=== PATIENT | female | born 1955 | race Hispanic/Latino ===

== ENCOUNTER 2017-08-24 13:15 | Inpatient (IN) | payer BC ==
[2017-08-24] MEDS ORDERED: Albuterol-Ipratrop 3 mg / 0.5 (3 ml) UD IH STA ×2 (14:50→14:55)
[2017-08-24 15:41] LABS: BASO # 0.02 K/mm3 (0.0-2.0); BASO % 0.1 % (0.0-3.0); EOS # 0.1 (0.0-0.7); EOS % 0.4 % (1.5-5.0); GRAN # 13.44 (1.4-6.5); GRAN % 81.4 % (50.0-68.0); HEMOGLOBIN 14.6 g/dL (12.0-16.0); LYMPH # 1.8 (1.2-3.4); LYMPH % 10.8 % (22.0-35.0); MEAN CELL VOLUME 85.9 fl (80.0-105.0); MEAN CORPUSCULAR HEMOGLOBIN 29.4 pg (25.0-35.0); MEAN CORPUSCULAR HGB CONC 34.3 g/dl (31.0-37.0); MONO # 1.2 (0.1-0.6); MONO % 7.3 % (1.0-6.0); RBC 4.96 10^6/uL (3.5-6.1); RED CELL DISTRIBUTION WIDTH 12.8 % (11.5-14.5); WHITE BLOOD COUNT 16.5 10^3/ul (4.5-11.0)
--- NOTE | 2017-08-24 15:42 | RAD ---
HISTORY: r/o infiltrate COMPARISON: No prior. FINDINGS: LUNGS: There is a large right-sided pleural effusion and right-sided infiltrate with nearly complete opacification of the right lung. PLEURA: Large right pleural effusion CARDIOVASCULAR: Normal. OSSEOUS STRUCTURES: No significant abnormalities. VISUALIZED UPPER ABDOMEN: Normal. OTHER FINDINGS: None. IMPRESSION: There is a large right-sided pleural effusion and right-sided infiltrate with nearly complete opacification of the right lung.
--- NOTE | 2017-08-24 15:50 | CT ---
PROCEDURE: CT Chest without contrast HISTORY: SOB COMPARISON: None. TECHNIQUE: Contiguous axial images were obtained through the chest without intravenous contrast enhancement. Sagittal and coronal reconstructions were performed. Radiation dose (DLP): 333 mGy-cm. This CT exam was performed using one or more of the following dose reduction techniques: Automated exposure control, adjustment of the mA and/or kV according to patient size, and/or use of iterative reconstruction technique. FINDINGS: LUNGS: There is a large loculated appearing pleural effusion on the right. There is severe compression and consolidation of the right lung. There is minimal aerated lung in the right apex posteriorly. There is no obvious endobronchial lesion. There is no evidence of a pleural based mass The left lung is clear MEDIASTINUM: Unremarkable thoracic aorta. No aneurysm. Normal sized heart. Main pulmonary artery unremarkable. No vascular congestion. No lymphadenopathy. PLEURA: No pleural fluid. No pneumothorax. BONES: No fracture. No destructive lesion. UPPER ABDOMEN: Grossly unremarkable. OTHER FINDINGS: None. IMPRESSION: There is a large loculated appearing pleural effusion on the right. There is severe compression and consolidation of the right lung. There is minimal aerated lung in the right apex posteriorly. There is no obvious endobronchial lesion.
[2017-08-24 16:36] LABS: ALB/GLOB RATIO 1.1 (1.1-1.8); ALBUMIN 3.9 g/dL (3.0-4.8); ALT/SGPT 57 U/L (7-56); AST/SGOT 43 U/L (14-36); BLOOD UREA NITROGEN 14 mg/dL (7-21); CALCIUM 9.3 mg/dL (8.4-10.5); GFR AFRICAN-AMERICAN > 60; GFR NON-AFRICAN AMERICAN > 60
[2017-08-24 16:45] LABS: B-TYPE NATRIURETIC PEPTIDE 93.6 pg/mL (0-450); TROPONIN I < 0.01 ng/mL
[2017-08-24] MEDS ORDERED: Azithromycin 500MG/NS 250ml 500 MG/250 ML BAG IVPB STA (18:04)
--- NOTE | 2017-08-24 18:28 | CARD ---
APPROVED REPORT EKG Measurement Heart [id number] <Conclusion> Sinus tachycardia Nonspecific ST and T wave abnormality Abnormal ECG
--- NOTE | 2017-08-24 18:40 | ED PDOC ---
Arrival/HPI - General Chief Complaint: Respiratory Distress Time Seen by Provider: 08/24/17 14:25 Historian: Patient - History of Present Illness Narrative History of Present Illness (Text): 08/24/17 18:36 A 61 year old female presents to the emergency department complaining of progressively worsening shortness of breath for the past several weeks. Patient notes associated dry cough. She reports being treated outpatient by her PMD, with no significant improvement of symptoms. Patient denies any fever, chills, nausea, vomiting, abdominal pain, chest pain or any other complaints. Patient denies any recent travel. Time/Duration: Other (several weeks) Symptom Course: Worsening Context: Home Past Medical History - Provider Review Nursing Documentation Reviewed: Yes - Infectious Disease Hx of Infectious Diseases: None - Reproductive Menopause: Yes - Pulmonary Hx Chronic Obstructive Pulmonary Disease (COPD): Yes - Psychiatric Hx Substance Use: No - Anesthesia Hx Anesthesia: Yes Hx Anesthesia Reactions: No Hx Malignant Hyperthermia: No Family/Social History - Physician Review Nursing Documentation Reviewed: Yes Family/Social History: No Known Family HX Smoking Status: Former Smoker Hx Alcohol Use: No Hx Substance Use: No Allergies/Home Meds Allergies/Adverse Reactions: Allergies No Known Allergies Allergy (Unverified 08/24/17 14:50) Home Medications: Home Meds Medication Instructions Recorded Confirmed No Known Home Med 08/24/17 08/24/17 Review of Systems - Physician Review All systems were reviewed & negative as marked: Yes - Review of Systems Constitutional: absent: Fevers, Night Sweats Respiratory: SOB, Cough. absent: Sputum Cardiovascular: absent: Chest Pain Gastrointestinal: absent: Abdominal Pain, Nausea, Vomiting Physical Exam Vital Signs Reviewed: Yes Vital Signs Temp Pulse Resp BP Pulse Ox 08/24/17 17:35 103 H 18 125/72 94 L 08/24/17 16:25 99 H 18 104/74 95 08/24/17 15:16 102 H 18 102/79 95 08/24/17 13:43 20 95 08/24/17 13:38 97.8 F 112 H 20 100/86 94 L Temperature: Afebrile Blood Pressure: Normal Pulse: Tachycardic Respiratory Rate: Normal Appearance: Positive for: Well-Appearing, Non-Toxic, Comfortable Pain Distress: None Mental Status: Positive for: Alert and Oriented X 3 - Systems Exam Head: Present: Atraumatic, Normocephalic Pupils: Present: PERRL Extroacular Muscles: Present: EOMI Conjunctiva: Present: Normal Mouth: Present: Moist Mucous Membranes Neck: Present: Normal Range of Motion Respiratory/Chest: Present: Decreased Breath Sounds (in right lung field). No: Respiratory Distress, Accessory Muscle Use Cardiovascular: Present: Regular Rate and Rhythm, Normal S1, S2. No: Murmurs Abdomen: No: Tenderness, Distention, Peritoneal Signs Back: Present: Normal Inspection Upper Extremity: Present: Normal Inspection. No: Cyanosis, Edema Lower Extremity: Present: Normal Inspection. No: Edema Neurological: Present: GCS=15, CN II-XII Intact, Speech Normal Skin: Present: Warm, Dry, Normal Color. No: Rashes Psychiatric: Present: Alert, Oriented x 3, Normal Insight, Normal Concentration Medical Decision Making ED Course and Treatment: 08/24/17 18:36 Impression: Plan: -- Chest CT -- Chest xray -- EKG -- Labs -- Duoneb and Solumedrol -- Reassess and disposition Progress Notes: EKG shows sinus tachycardia at [address]-segment elevations. Interpreted by me. Report Date : 08/24/2017 15:40:19 Procedure: Chest xray Dictator : Johnny Gomez MD IMPRESSION: There is a large right-sided pleural effusion and right-sided infiltrate with nearly complete opacification of the right lung. Report Date : 08/24/2017 15:48:39 PROCEDURE: CT Chest without contrast Dictator : Johnny Gomez MD IMPRESSION: There is a large loculated appearing pleural effusion on the right. There is severe compression and consolidation of the right lung. There is minimal aerated lung in the right apex posteriorly. There is no obvious endobronchial lesion. Case discussed with Dr. Santacruz, who is aware of and in agreement with admission to telemetry for further evaluation. - Lab Interpretations Lab Results: 08/24/17 15:20 08/24/17 15:20 Lab Results 08/24/17 15:20: Sodium 138, Potassium 4.2, Chloride 101, Carbon Dioxide 23, Anion Gap 17, BUN 14, Creatinine 0.8, Est GFR ( Amer) > 60, Est GFR (Non- Af Amer) > 60, Random Glucose 100, Calcium 9.3, Magnesium 2.2, Total Bilirubin 0.8, AST 43 H, ALT 57 H, Alkaline Phosphatase 174 H, Lactate Dehydrogenase 545, Total Creatine Kinase 39, Troponin I < 0.01, NT-Pro-B Natriuret Pep 93.6, Total Protein 7.5, Albumin 3.9, Globulin 3.6, Albumin/Globulin Ratio 1.1 08/24/17 15:20: WBC 16.5 H D, RBC 4.96, Hgb 14.6, Hct 42.6, MCV 85.9, MCH 29.4, MCHC 34.3, RDW 12.8, Plt Count 319, MPV 10.0, Gran % 81.4 H, Lymph % (Auto) 10.8 L, [place] % (Auto) 7.3 H, Eos % (Auto) 0.4 L, Baso % (Auto) 0.1, Gran # 13.44 H, Lymph # (Auto) 1.8, [place] # (Auto) 1.2 H, Eos # (Auto) 0.1, Baso # (Auto ) 0.02 I have reviewed the lab results: Yes - RAD Interpretation Radiology Orders: 08/24/17 14:50 CHEST W/O CONTRAST [CT] Stat 08/24/17 14:51 CHEST PORTABLE [RAD] Stat - Medication Orders Current Medication Orders: Acetaminophen (Tylenol 325mg Tab) 650 mg PO Q6H PRN PRN Reason: Fever >100.4 F Enoxaparin Sodium (Lovenox) 30 mg SC DAILY SILVIA PRN Reason: Protocol Cefepime HCl (Maxipime 1gm) 1 gm in 100 mls @ 100 mls/hr IVPB Q12 [facility] PRN Reason: Protocol Last Admin: 08/24/17 21:30 Dose: 100 mls/hr eMAR Start Stop Document 08/24/17 21:30 KISHAN (Rec: 08/24/17 21:31 KISHAN [id number]) Intravenous Solution Start Date 08/24/17 Start Time 09:00 End Date 08/24/17 End time 10:00 Total Infusion Time 60 Azithromycin (Zithromax 500mg In Ns) 500 mg in 250 mls @ 167 mls/hr IVPB DAILY SIL[facility]IA PRN Reason: Protocol Vancomycin HCl (Vancomycin 1gm) 1 gm in 250 mls @ 167 mls/hr IVPB Q12H [facility] PRN Reason: Protocol Last Admin: 08/24/17 21:31 Dose: 167 mls/hr eMAR Start Stop Document 08/24/17 21:31 ZARAL (Rec: 08/24/17 21:31 ZARAL [id number]) Intravenous Solution Start Date 08/24/17 Start Time 10:30 End Date 08/24/17 End time 00:00 Total Infusion Time -630 Levalbuterol HCl (Xopenex) 1.25 mg IH [id number] SILVIA Last Admin: 08/24/17 21:14 Dose: 1.25 mg Methylprednisolone (Solu-Medrol) 40 mg IV Q8H SILVIA Last Admin: 08/24/17 18:42 Dose: 40 mg eMAR Start Stop Document 08/24/17 18:42 MV (Rec: 08/24/17 18:42 MV [id number]) Intravenous Solution Start Date 08/24/17 Start Time 18:42 Pantoprazole Sodium (Protonix Ec Tab) 40 mg PO 0630 SILVIA Venlafaxine HCl (Effexor Xr) 150 mg PO DAILY SILVIA Discontinued Medications Albuterol/Ipratropium (Duoneb 3 Mg/0.5 Mg (3 Ml) Ud) 3 ml IH STAT STA Stop: 08/24/17 14:51 Last Admin: 08/24/17 15:09 Dose: 3 ml Albuterol/Ipratropium (Duoneb 3 Mg/0.5 Mg (3 Ml) Ud) 3 ml IH STAT STA Stop: 08/24/17 14:56 Last Admin: 08/24/17 15:10 Dose: 3 ml Azithromycin (Zithromax 500mg In Ns) 500 mg in 250 mls @ 167 mls/hr IVPB STAT STA PRN Reason: Protocol Stop: 08/24/17 19:33 Last Admin: 08/24/17 18:43 Dose: 167 mls/hr eMAR Start Stop Document 08/24/17 18:43 MV (Rec: 08/24/17 18:43 MV [id number]) Intravenous Solution Start Date 08/24/17 Start Time 18:43 Methylprednisolone (Solu-Medrol) 125 mg IVP STAT STA Stop: 08/24/17 14:51 Last Admin: 08/24/17 15:10 Dose: 125 mg IVP Administration Document 08/24/17 15:10 EQ (Rec: 08/24/17 15:10 EQ [id number]) Charges for Administration # of IVP Administrations 1 Pneumococcal Polyvalent Vaccine (Pneumovax 23 Vaccine) 0.5 ml IM .ONCE ONE Stop: 08/24/17 21:40 - Scribe Statement The provider has reviewed the documentation as recorded by the Scribe Cass Marvin Provider Scribe Attestation: All medical record entries made by the Scribe were at my direction and personally dictated by me. I have reviewed the chart and agree that the record accurately reflects my personal performance of the history, physical exam, medical decision making, and the department course for this patient. I have also personally directed, reviewed, and agree with the discharge instructions and disposition. Disposition/Present on Arrival - Present on Arrival Any Indicators Present on Arrival: No History of DVT/PE: No History of Uncontrolled Diabetes: No Urinary Catheter: No History of Decub. Ulcer: No History Surgical Site Infection Following: None - Disposition Have Diagnosis and Disposition been Completed?: Yes Diagnosis: Pleural effusion Disposition: HOSPITALIZED Disposition Time: 15:10 Condition: GUARDED
[2017-08-24] MEDS: MethylPREDNISolone 40 mg Vial IV SCH (18:42)
[2017-08-24 19:36] LABS: HDL CHOLESTEROL 33 mg/dL (29-60); LDL CHOLESTEROL 115 mg/dL (0-129)
[2017-08-24] MEDS: Levalbuterol 1.25 MG/3 ML Inhal Soln UD IH SCH (21:14)
[2017-08-24] MEDS: Vancomycin 1gm in NS 250ml 1 GM/250 ML BAG IVPB SCH (21:31)
[2017-08-24 21:38] VITALS: BMI 26.5
[2017-08-24] MEDS ORDERED: Pneumococcal 23-Valent Vaccine IM ONE (21:39)
[2017-08-24] MEDS ORDERED: Cefepime 1gm in NS 100ml 1 GM/100 ML BAG IVPB SCH (22:00)
[2017-08-25] MEDS: Levalbuterol 1.25 MG/3 ML Inhal Soln UD IH SCH ×5 (01:34→20:46)
[2017-08-25] MEDS: MethylPREDNISolone 40 mg Vial IV SCH ×3 (02:13→17:29)
--- NOTE | 2017-08-25 03:30 | HP ---
HISTORY OF PRESENT ILLNESS: The patient is a 61-year-old white female, known to me from outside practice and was seen in the office on 08/10 with shortness of breath and she was densely wheezing. She was given intramuscular 80 mg Depo-Medrol. She was also given prescription of Symbicort, Medrol-Dosepak, and nebulizer treatment. CT scan of the chest was ordered, but she never got one. Patient states she started to feel a little better, but got worse again, so she came to emergency room for further evaluation. Denies any fever or chills. No history of nausea or vomiting. PAST MEDICAL HISTORY: She has significant past medical history for; 1. Depression. 2. History of hysterectomy. 3. Generalized osteoarthritis. ALLERGIES: SHE IS NOT ALLERGIC TO ANY MEDICATIONS. MEDICATIONS AT HOME: She is on Effexor 150 mg daily, vitamin D, and Celebrex 200 daily. SOCIAL HISTORY: She is and she is active smoker and smokes almost 1 pack a day. REVIEW OF SYSTEMS: Significant for shortness of breath and cough. PHYSICAL EXAMINATION: GENERAL: She is awake and alert, able to communicate. VITAL SIGNS: She is afebrile, pulse 112, respiration 20, blood pressure 100/86. LUNGS: Decreased breath sounds in the middle to lower lung region on the right side. HEART: S1 and S2 audible. ABDOMEN: Soft, nontender. No rebound, no guarding. NEUROLOGICAL: Patient is awake, alert, oriented, and communicative. LABORATORY EXAM: WBC is 16.5, hemoglobin 14, hematocrit 42, platelet of 319. Chemistry: Sodium 138, potassium 4.2, chloride 101, CO2 of 23, BUN 14, creatinine 0.8, blood sugar of 100. LFT shows AST 43, ALT 57, alkaline phosphatase is 174. She had x-ray of chest done that shows large right-sided pleural effusion and right-sided infiltrate with nearly complete opacification of the right lung and CT scan of the chest shows right pleural effusion, large loculated-appearing pleural effusion in the right side. There is severe compression and consolidation of the right lung. Minimal aerated lung in the right apex. Posteriorly, there is no obvious endobronchial lesion. ASSESSMENT: 1. Probably community-acquired pneumonia. 2. Pleural effusion. 3. Active smoker. 4. History of depression. PLAN: We will start the patient on IV antibiotics. Started on IV steroids. She was started on nebulizer treatment. I allowed her for echocardiogram. Pulmonary consult by Dr. Garcia will be requested and also consult with Dr. Nevarez. We will reevaluate the patient in a.m. Johan Santacruz MD
[2017-08-25] MEDS: Pantoprazole 40 mg EC Tab PO SCH (05:23)
[2017-08-25 06:39] LABS: GRAN # 14.93 (1.4-6.5); GRAN % 93.1 % (50.0-68.0); HEMOGLOBIN 13.5 g/dL (12.0-16.0); LYMPH # 0.8 (1.2-3.4); LYMPH % 5.2 % (22.0-35.0); MEAN CELL VOLUME 85.7 fl (80.0-105.0); MEAN CORPUSCULAR HEMOGLOBIN 28.8 pg (25.0-35.0); MEAN CORPUSCULAR HGB CONC 33.7 g/dl (31.0-37.0); MEAN PLATELET VOLUME 10.1 fl (7.0-11.0); MONO # 0.3 (0.1-0.6); MONO % 1.7 % (1.0-6.0); PLATELET COUNT 320 10^3/uL (120.0-450.0); RBC 4.68 10^6/uL (3.5-6.1); RED CELL DISTRIBUTION WIDTH 12.8 % (11.5-14.5)
[2017-08-25 06:52] LABS: ALB/GLOB RATIO 1.2 (1.1-1.8); ALBUMIN 3.8 g/dL (3.0-4.8); ALT/SGPT 58 U/L (7-56); AST/SGOT 40 U/L (14-36); BLOOD UREA NITROGEN 14 mg/dL (7-21); CALCIUM 9.1 mg/dL (8.4-10.5); GFR AFRICAN-AMERICAN > 60; GFR NON-AFRICAN AMERICAN > 60
[2017-08-25 07:06] LABS: FREE T4 1.36 ng/dL (0.78-2.19)
[2017-08-25 08:14] LABS: LYMPHOCYTE 2 % (22.0-35.0); MONOCYTE 1 % (1.0-6.0); NEUTROPHIL 97 % (50.0-70.0)
[2017-08-25 08:15] LABS: PLATELET ESTIMATE NORMAL (NORMAL)
[2017-08-25] MEDS: Vancomycin 1gm in NS 250ml 1 GM/250 ML BAG IVPB SCH ×2 (08:54→23:10)
[2017-08-25] MEDS: Venlafaxine 75 mg ER Cap PO SCH (09:14)
[2017-08-25] MEDS: Enoxaparin 30 mg Syringe SC SCH (09:14)
[2017-08-25] MEDS: Azithromycin 500MG/NS 250ml 500 MG/250 ML BAG IVPB SCH (11:02)
[2017-08-25] MEDS: Cefepime 1gm in NS 100ml 1 GM/100 ML BAG IVPB SCH ×2 (13:35→21:55)
--- NOTE | 2017-08-25 15:19 | CP.PCM.CON ---
History of Present Illness - History of Present Illness History of Present Illness: 61 year old female with PMH of COPD, depression, S/P hysterectomy, osteoarthritis was sent in to [facility] after continued and worsening shortness of breath at rest and dyspnea on exertion which started about a month ago. At that time, it was thought that she had COPD exacerbation and was given inhalers and PO antibiotics without relief of the SOB. She continued to have it and worsened over several weeks. She denies developing fevers, has no cough until today and the cough is dry without phlegm, no chest pain, no sore throat, no rhinorrhea, no headache or dizziness, no abdominal pain, no diarrhea, no dysuria. The patient traveling outside of [place] in the past 4-5 months, denies animal contacts. CXR and CT chest are showing left sided loculated pleural effusion. Infectious Diseases consult is requested to further evaluate and manage. Review of Systems - Review of Systems All systems: reviewed and no additional remarkable complaints except (as per HPI ) Past Patient History - Infectious Disease Hx of Infectious Diseases: None - Past Social History Smoking Status: Former Smoker - PULMONARY Hx Chronic Obstructive Pulmonary Disease (COPD): Yes - PSYCHIATRIC Hx Substance Use: No - ANESTHESIA Hx Anesthesia: Yes Hx Anesthesia Reactions: No Hx Malignant Hyperthermia: No Meds Allergies/Adverse Reactions: Allergies Allergy/AdvReac Type Severity Reaction Status Date / Time No Known Allergies Allergy Unverified 08/24/17 14:50 - Medications Medications: Current Medications Acetaminophen (Tylenol 325mg Tab) 650 mg PO Q6H PRN PRN Reason: Fever >100.4 F Enoxaparin Sodium (Lovenox) 30 mg SC DAILY SILVIA PRN Reason: Protocol Cefepime HCl (Maxipime 1gm) 1 gm in 100 mls @ 100 mls/hr IVPB Q12 SILVIA PRN Reason: Protocol Azithromycin (Zithromax 500mg In Ns) 500 mg in 250 mls @ 167 mls/hr IVPB DAILY SILVIA PRN Reason: Protocol Vancomycin HCl (Vancomycin 1gm) 1 gm in 250 mls @ 167 mls/hr IVPB Q12H SILVIA PRN Reason: Protocol Levalbuterol HCl (Xopenex) 1.25 mg I[id number] Last Admin: 08/24/17 21:14 Dose: 1.25 mg Methylprednisolone (Solu-Medrol) 40 mg IV Q8H [facility] Last Admin: 08/24/17 18:42 Dose: 40 mg Pantoprazole Sodium (Protonix Ec Tab) 40 mg PO 0630 SILVIA Venlafaxine HCl (Effexor Xr) 150 mg PO DAILY [facility] Physical Exam - Constitutional Appears: Chronically Ill, Other (short of breath, speaks in sentences) - Head Exam Head Exam: NORMAL INSPECTION - Respiratory Exam Respiratory Exam: Decreased Breath Sounds - Cardiovascular Exam Cardiovascular Exam: +S1, +S2 - GI/Abdominal Exam GI & Abdominal Exam: Soft. absent: Tenderness Results - Vital Signs Recent Vital Signs: Last Vital Signs Temp 97.8 F 08/24/17 13:38 Pulse 103 H 08/24/17 17:35 Resp 18 08/24/17 17:35 BP 125/72 08/24/17 17:35 Pulse Ox 94 L 08/24/17 17:35 - Labs Result Diagrams: 08/25/17 06:15 08/25/17 06:15 Labs: Laboratory Results - last 24 hr 08/24/17 19:04 Triglycerides 190 H Cholesterol 189 LDL Cholesterol Direct 115 HDL Cholesterol 33 Assessment & Plan - Assessment and Plan (Free Text) Plan: Assessment Systemic Inflammatory response syndrome due to respiratory distress from loculated pleural effusion, R/O empyema associated with left HCAP, R/o malignant pleural effusion COPD depression S/P hysterectomy osteoarthritis Plan Started the patient on Vancomycin and Cefepime pending blood cx; patient will need thoracentesis and will await pleural fluid analysis for cytology, bacterial , fungal and mycobacterial cultures ; [place] making TB unlikely will monitor clinically
[2017-08-25] MEDS: Oxycodone/Acetaminophen 5/325 mg Tab PO PRN (15:44)
--- NOTE | 2017-08-25 16:26 | US ---
PROCEDURE: Ultrasound guided right thoracentesis. CLINICAL HISTORY: Large right pleural effusion. Shortness of breath. Smoker. Evaluate for malignant effusion. PHYSICIAN(S): Pool Antunez MD. TECHNIQUE: The relative risks and indications of the procedure were explained the patient and consent obtained. The patient is placed in a sitting position is sonography of the right chest performed. This revealed a large non loculated right pleural effusion. A puncture site in the right posterior lateral chest was selected in the area prepped and draped usual sterile fashion. 1 percent xylocaine was used to anesthetize the skin soft tissues. 7 Turkmen catheter was trocar into the right pleural space and 3000 cc of poe fluid aspirated. Specimens were sent for cytology and pH. IMPRESSION: 1. Ultrasound guided right thoracentesis. 3000 cc of poe fluid were aspirated. A cytology specimen was sent
--- NOTE | 2017-08-25 18:07 | PN ---
DATE: 08/25/2017 SUBJECTIVE: The patient is 61 years old, seen and examined, complained of shortness of breath, very little difference. The patient is scheduled for thoracentesis. PHYSICAL EXAMINATION: GENERAL: She is awake, alert, oriented, communicative, short of breath. VITAL SIGNS: She is afebrile, pulse 66, respirations 20, blood pressure 116/75. LUNGS: She has decreased breath sounds allover from top to the base on the right side; however, she has fair airflow on the left side. HEART: S1 and S2 audible. ABDOMEN: Soft. Nontender. No rebound. No guarding. NEUROLOGIC: She is awake, alert, oriented, communicative. LABORATORY EXAM: WBC 16, hemoglobin 13.5, hematocrit 40, platelet Of 320. Chemistry: Sodium 141, potassium 4.2, chloride 104, CO2 of 24, BUN 14, creatinine 0.7, blood sugar of 130. Her AST 40, ALT 58. Procalcitonin is 0.05. After I saw the patient, the patient has ultrasound-guided right thoracentesis done and 3000 mL of the fluid was aspirated. Echocardiogram is pending. ASSESSMENT: 1. Right pleural effusion, probably resolving pneumonia. 2. History of depression. 3. Chronic obstructive pulmonary disease. 4. History of hysterectomy. PLAN: We will continue the patient on nebulizer treatment. She is on DVT prophylaxis. She is getting Maxipime. We will give her Percocet as needed. Currently, she is on vancomycin, Maxipime and Zithromax. We will continue that. We will reevaluate the patient in the a.m. Follow up thoracentesis. We will follow up pleural fluid cytology and we will continue to monitor the patient closely. Johan Santacruz MD
--- NOTE | 2017-08-25 19:00 | CARD ---
APPROVED REPORT EXAM: Two-dimensional and M-mode echocardiogram with Doppler and color Doppler. INDICATION Dyspnea 2D DIMENSIONS Left Atrium (2D)2.9 (1.6-4.0cm)IVSd1.1 (0.7-1.1cm) LVDd3.8 (3.9-5.9cm)PWd1.0 (0.7-1.1cm) LVDs2.4 (2.5-4.0cm)FS (%) 35.5 % LVEF (%)65.7 (>50%) M-Mode DIMENSIONS Aortic Root3.30 (2.2-3.7cm)Aortic Cusp Exc.1.70 (1.5-2.0cm) Aortic Valve AoV Peak [id number]/Joaquin Peak GR.10mmHg Mitral Valve E/A ratio0.0 TDI E/Lateral E'0.0E/Medial E'0.0 Tricuspid Valve TR Peak [id number] [id number] Peak Gr.28mmHg [id number] LEFT VENTRICLE The left ventricle is normal size. There is normal left ventricular wall thickness. The left ventricular function is normal. The left ventricular ejection fraction is within the normal range. There is normal LV segmental wall motion. Transmitral Doppler flow pattern is Grade I-abnormal relaxation pattern. RIGHT VENTRICLE The right ventricle is normal size. There is normal right ventricular wall thickness. The right ventricular systolic function is normal. ATRIA The left atrium size is normal. The right atrium size is normal. AORTIC VALVE The aortic valve is normal in structure. No aortic regurgitation is present. There is no aortic valvular stenosis. MITRAL VALVE The mitral valve is moderately thickened. There is no mitral valve regurgitation noted. There is no mitral valve stenosis. TRICUSPID VALVE There is mild tricuspid regurgitation. There is mild pulmonary hypertension. GREAT VESSELS The aortic root is normal in size. PERICARDIAL EFFUSION There is large right pleural effusion. There is a trace loculated anterior pericardial effusion. <Conclusion> The left ventricle is normal size. There is normal left ventricular wall thickness. The left ventricular function is normal. The left ventricular ejection fraction is within the normal range. There is normal LV segmental wall motion. Transmitral Doppler flow pattern is Grade I-abnormal relaxation pattern. There is mild tricuspid regurgitation. There is mild pulmonary hypertension. There is large right pleural effusion.
[2017-08-26] MEDS: Levalbuterol 1.25 MG/3 ML Inhal Soln UD IH SCH ×4 (01:09→19:45)
[2017-08-26] MEDS: MethylPREDNISolone 40 mg Vial IV SCH ×2 (01:09→11:07)
[2017-08-26] MEDS: Oxycodone/Acetaminophen 5/325 mg Tab PO PRN ×3 (01:18→22:32)
--- NOTE | 2017-08-26 02:16 | CON ---
DATE: 08/25/2017 PULMONARY CONSULTATION REFERRING PHYSICIAN: Johan Santacruz MD. REASON FOR CONSULTATION: Cough, shortness of breath, chronic lung disease, large pleural effusion. HISTORY OF PRESENT ILLNESS: This is a 61-year-old female with past medical history significant for depression, osteoarthritis, may have chronic lung disease, seen primary care physician as an outpatient with shortness of breath. She was giving p.o. and inhaled bronchodilator without much success. Her respiratory status got worse and came to emergency room, found to have a large pleural effusion. She was started on IV and inhaled bronchodilator, antibiotic was given. Still has shortness of breath. No fever. No hemoptysis, hematemesis, hematuria, diarrhea reported. PAST MEDICAL HISTORY: As per history of present illness. ALLERGIES: NONE KNOWN. SOCIAL HISTORY: Positive history of smoking. Denies any alcohol use. Recently had divorce. MEDICATIONS: She is on Effexor XR 150 mg daily, Lovenox 30 mg subcu daily, cefepime 1 g IV every 8 hours, Protonix 40 mg daily, Solu-Medrol 40 mg every 8 hours, Tylenol p.r.n. basis, vancomycin 1 g IV every 12 hours, Xanax 0.5 mg three times a day p.r.n., Xopenex inhale every 6 hours, and Zithromax 500 mg daily. REVIEW OF SYSTEMS: No headache, no rhinitis. Does not know if snore. Short of breath, cough. No nausea, no vomiting, no diarrhea, no dysuria. No leg pain or leg swelling. PHYSICAL EXAMINATION: GENERAL: Mild distress secondary to shortness of breath. VITAL SIGNS: Temperature is 98, heart rate is 66, respiratory rate is 20, blood pressure 116/75, pulse ox 96% on 2 liters nasal cannula. HEENT: Moist mucous membrane. Crowded airway. NECK: Supple. No JVD. LUNGS: breath sounds in the right lung. Poor airflow in the left lung. HEART: S1 and S2. ABDOMEN: Soft, nontender. No organomegaly. EXTREMITIES: No edema. NEUROLOGIC: Awake, alert, and follows simple commands. LABORATORY DATA: Shows hemoglobin 13.5, hematocrit 40.1, WBC 16, platelet count is 320. Sodium 141, potassium 4.2, chloride 104, bicarbonate 24, BUN 14, creatinine 0.7, glucose 130, calcium is 9.1. AST 40, ALT 58, alkaline phosphatase is 154. Albumin is 3.8, procalcitonin less than 0.05. Free T4 is 1.37, TSH 0.7. CT of the chest done in ER yesterday shows large loculated appearing right pleural effusion with severe compression and atelectasis of the right lung. IMPRESSION AND PLAN: Large right pleural effusion which is loculated, component of chronic obstructive lung disease, degenerative joint disease, clinically suspicious for malignancy. Spoke to nursing staff. Awaiting for large volume thoracentesis in interventional radiology. Continue IV and inhaled bronchodilator. Continue antibiotics. Gastric prophylaxis, deep venous thrombosis prophylaxis, Nicoderm patch. Thank you and we will follow with you. Ben Garcia MD
[2017-08-26] MEDS: Pantoprazole 40 mg EC Tab PO SCH (05:44)
[2017-08-26] MEDS: Cefepime 1gm in NS 100ml 1 GM/100 ML BAG IVPB SCH ×3 (05:45→21:49)
[2017-08-26 06:26] LABS: BASO # 0.01 K/mm3 (0.0-2.0); GRAN # 26.27 (1.4-6.5); GRAN % 94.1 % (50.0-68.0); HEMOGLOBIN 13.1 g/dL (12.0-16.0); LYMPH % 3.6 % (22.0-35.0); MEAN CORPUSCULAR HEMOGLOBIN 28.7 pg (25.0-35.0); MEAN CORPUSCULAR HGB CONC 33.3 g/dl (31.0-37.0); MEAN PLATELET VOLUME 10.2 fl (7.0-11.0); MONO # 0.6 (0.1-0.6); MONO % 2.3 % (1.0-6.0); RBC 4.57 10^6/uL (3.5-6.1); RED CELL DISTRIBUTION WIDTH 12.7 % (11.5-14.5)
[2017-08-26 06:44] LABS: WHITE BLOOD COUNT 27.9 10^3/ul (4.5-11.0)
[2017-08-26 07:30] LABS: ALB/GLOB RATIO 1.2 (1.1-1.8); ALBUMIN 3.8 g/dL (3.0-4.8); ALT/SGPT 92 U/L (7-56); AST/SGOT 75 U/L (14-36); BLOOD UREA NITROGEN 14 mg/dL (7-21); CALCIUM 9.1 mg/dL (8.4-10.5); GFR AFRICAN-AMERICAN > 60; GFR NON-AFRICAN AMERICAN > 60
--- NOTE | 2017-08-26 08:38 | RAD ---
HISTORY: rt thora. ? rt hilar mass COMPARISON: 08/24/2017 TECHNIQUE: Chest PA and lateral FINDINGS: LUNGS: There is a large right-sided pneumothorax following thoracentesis. At the right lung base the edge of the lung is 5 cm from the chest wall. I spoke to the patient's nurse at 8:30 a.m. 08/26/2017 PLEURA: No significant pleural effusion identified. No pneumothorax apparent. CARDIOVASCULAR: Normal. OSSEOUS STRUCTURES: No significant abnormalities. VISUALIZED UPPER ABDOMEN: Normal. OTHER FINDINGS: None. IMPRESSION: Large right-sided pneumothorax
[2017-08-26] MEDS: Vancomycin 1gm in NS 250ml 1 GM/250 ML BAG IVPB SCH (08:40)
--- NOTE | 2017-08-26 08:42 | CT ---
PROCEDURE: CT Chest without contrast HISTORY: r/o tumor COMPARISON: 08/24/2017 TECHNIQUE: Contiguous axial images were obtained through the chest without intravenous contrast enhancement. Sagittal and coronal reconstructions were performed. Radiation dose (DLP): 243 mGy-cm. This CT exam was performed using one or more of the following dose reduction techniques: Automated exposure control, adjustment of the mA and/or kV according to patient size, and/or use of iterative reconstruction technique. FINDINGS: LUNGS: There is a large pneumothorax following thoracentesis. There is a small residual hydro pneumothorax. There is some consolidation in the periphery of the right lower lobe without evidence of a discrete mass. This would be better re- evaluated when there is re-expansion of the right lung. There is no obvious endobronchial lesion. I spoke to the patient's nurse regarding this finding at 8:30 a.m. on 08/26/2017. There is some parenchymal scarring in the left lung as well as emphysematous changes in both upper lobes. MEDIASTINUM: Unremarkable thoracic aorta. No aneurysm. Normal sized heart. Main pulmonary artery unremarkable. No vascular congestion. No lymphadenopathy. PLEURA: No pleural fluid. No pneumothorax. BONES: No fracture. No destructive lesion. UPPER ABDOMEN: Grossly unremarkable. OTHER FINDINGS: None. IMPRESSION: Large right-sided pneumothorax following thoracentesis. There is some consolidation in the periphery of the right lower lobe without evidence of a discrete mass. Revaluation after re-expansion of the lung is recommended
[2017-08-26] MEDS: Enoxaparin 30 mg Syringe SC SCH (09:21)
[2017-08-26] MEDS ORDERED: Morphine 4 mg/ml ISec IVP STA (09:43)
[2017-08-26] MEDS ORDERED: Lidocaine 2% Inj (20ml) IV STA (09:56)
[2017-08-26 10:06] LABS: INR 1.16 (0.93-1.08); PARTIAL THROMBOPLASTIN TIME 25.9 Seconds (25.1-36.5); PROTHROMBIN TIME 13.4 SECONDS (9.4-12.5)
--- NOTE | 2017-08-26 10:49 | CP.PCM.CON ---
<Glynn Aguilar - Last Filed: 08/26/17 16:21> History of Present Illness - History of Present Illness History of Present Illness: Surgery Consult note. Dr. Patino 61yo F with PMHx of Depression, OA, COPD here for evaluation of shortness of breath. Patient reports slowly worsening dyspnea over the past 5 weeks. She saw her PMD and was prescribed two courses of steroids without any improvement. Upon presentation to the ED, she was noted to have a large right sided pleural effusion. Interventional Radiology performed an ultrasound guided thoracenthesis with 3L of poe colored fluid removed on 08/25. She states that her SOB has improved significantly since the procedure. Surgery was consulted due to Right sided pneumothorax apparent on CXR this morning. Currently, patient reports some dyspnea, slightly worse compared to yesterday. She denies any fevers, no chills. No Cough. No Chest pain. No N/V/D. No Abd pain. Denies sick contacts. PMHx: Depression, OA, COPD PSHx: x2, Partial Hysterectomy, Cholecystectomy, Right Breast Lumpectomy x2 (benign). Social Hx: Significant Tobacco use (43 years of tobacco use). NKDA Review of Systems - Review of Systems All systems: reviewed and no additional remarkable complaints except - Constitutional Constitutional: absent: Chills, Fever - Cardiovascular Cardiovascular: Dyspnea, Dyspnea on Exertion. absent: Chest Pain - Respiratory Respiratory: Dyspnea. absent: Cough - Gastrointestinal Gastrointestinal: absent: Abdominal Pain, Diarrhea, Nausea, Vomiting - Genitourinary Genitourinary: absent: Dysuria - Neurological Neurological: absent: Headaches - Psychiatric Psychiatric: absent: Anxiety, Depression Past Patient History - Infectious Disease Hx of Infectious Diseases: None - Past Medical History & Family History Past Family History: Reviewed and not pertinent - Past Social History Smoking Status: Former Smoker - PULMONARY Hx Chronic Obstructive Pulmonary Disease (COPD): Yes - MUSCULOSKELETAL/RHEUMATOLOGICAL Hx Falls: No - GASTROINTESTINAL Hx Gastroesophageal Reflux: Yes - GENITOURINARY/GYNECOLOGICAL Other/Comment: B/L LUNPECTOMY, C-SECTIONX2, GENI - PSYCHIATRIC Hx Substance Use: No - SURGICAL HISTORY Hx Surgeries: Yes Hx Cholecystectomy: Yes Hx Mastectomy: Yes (LUMPECTOMY B/L) - ANESTHESIA Hx Anesthesia: Yes Hx Anesthesia Reactions: No Hx Malignant Hyperthermia: No Meds Allergies/Adverse Reactions: Allergies Allergy/AdvReac Type Severity Reaction Status Date / Time No Known Allergies Allergy Unverified 08/24/17 14:50 - Medications Medications: Current Medications Acetaminophen (Tylenol 325mg Tab) 650 mg PO Q6H PRN PRN Reason: Fever >100.4 F Alprazolam (Xanax) 0.5 mg PO TID PRN; Protocol PRN Reason: Anxiety Last Admin: 08/26/17 09:36 Dose: 0.5 mg Enoxaparin Sodium (Lovenox) 30 mg SC DAILY [facility] PRN Reason: Protocol Last Admin: 08/26/17 09:21 Dose: Not Given Azithromycin (Zithromax 500mg In Ns) 500 mg in 250 mls @ 167 mls/hr IVPB DAILY [facility] PRN Reason: Protocol Last Admin: 08/25/17 11:02 Dose: 167 mls/hr Vancomycin HCl (Vancomycin 1gm) 1 gm in 250 mls @ 167 mls/hr IVPB Q12H [facility] PRN Reason: Protocol Last Admin: 08/26/17 08:40 Dose: 167 mls/hr Cefepime HCl (Maxipime 1gm) 1 gm in 100 mls @ 100 mls/hr IVPB Q8 [facility] PRN Reason: Protocol Last Admin: 08/26/17 05:45 Dose: 100 mls/hr Levalbuterol HCl (Xopenex) 1.25 mg IH [id number] [facility] Last Admin: 08/26/17 08:15 Dose: 1.25 mg Methylprednisolone (Solu-Medrol) 40 mg IV Q8H [facility] Last Admin: 08/26/17 01:09 Dose: 40 mg Oxycodone/Acetaminophen (Percocet 5/325 Mg Tab) 1 tab PO Q6H PRN PRN Reason: Pain, moderate (4-7) Stop: 08/28/17 15:28 Last Admin: 08/26/17 01:18 Dose: 1 tab Pantoprazole Sodium (Protonix Ec Tab) 40 mg PO 0630 [facility] Last Admin: 08/26/17 05:44 Dose: 40 mg Venlafaxine HCl (Effexor Xr) 150 mg PO DAILY [facility] Last Admin: 08/25/17 09:14 Dose: 150 mg Physical Exam - Constitutional Additional comments: visbly short of breath with some increased work of breathing - Head Exam Head Exam: ATRAUMATIC, NORMAL INSPECTION, NORMOCEPHALIC - Eye Exam Eye Exam: EOMI, Normal appearance - ENT Exam ENT Exam: Mucous Membranes Moist - Respiratory Exam Respiratory Exam: Decreased Breath Sounds (decreased breath sounds on right. ). absent: Accessory Muscle Use Additional comments: some increased work of breathing noted - Cardiovascular Exam Cardiovascular Exam: absent: JVD - GI/Abdominal Exam GI & Abdominal Exam: Soft. absent: Distended, Firm, Guarding, Tenderness - Extremities Exam Extremities exam: Positive for: normal inspection. Negative for: calf tenderness - Back Exam Additional comments: mid posterior back thoracenthesis dressing noted, to be clean dry and intact. - Neurological Exam Neurological exam: Alert, Oriented x3 - Skin Skin Exam: Dry, Intact, Normal Color, Warm Results - Vital Signs Recent Vital Signs: Last Vital Signs Temp 97.8 F 08/26/17 08:44 Pulse 80 08/26/17 10:34 Resp 20 08/26/17 08:44 BP 132/90 08/26/17 10:34 Pulse Ox 95 08/26/17 10:34 - Labs Result Diagrams: 08/26/17 05:30 08/26/17 05:30 Labs: Laboratory Results - last 24 hr 08/25/17 08/25/17 08/26/17 06:00 15:00 05:30 WBC 27.9 H* D RBC 4.57 Hgb 13.1 Hct 39.3 MCV 86.0 MCH 28.7 MCHC 33.3 RDW 12.7 Plt Count 356 MPV 10.2 Gran % 94.1 H Lymph % (Auto) 3.6 L [place] % (Auto) 2.3 Eos % (Auto) 0.0 L Baso % (Auto) 0.0 Gran # 26.27 H Lymph # (Auto) 1.0 L [place] # (Auto) 0.6 Eos # (Auto) 0.0 Baso # (Auto) 0.01 PT INR APTT Sodium Potassium Chloride Carbon Dioxide Anion Gap BUN Creatinine Est GFR ( Amer) Est GFR (Non-Af Amer) Random Glucose Calcium Total Bilirubin AST ALT Alkaline Phosphatase Total Protein Albumin Globulin Albumin/Globulin Ratio Procalcitonin < 0.05 L Pleural pH 7.5 08/26/17 08/26/17 05:30 09:48 WBC RBC Hgb Hct MCV MCH MCHC RDW Plt Count MPV Gran % Lymph % (Auto) [place] % (Auto) Eos % (Auto) Baso % (Auto) Gran # Lymph # (Auto) [place] # (Auto) Eos # (Auto) Baso # (Auto) PT 13.4 H INR 1.16 H APTT 25.9 Sodium 140 Potassium 4.1 Chloride 104 Carbon Dioxide 27 Anion Gap 14 BUN 14 Creatinine 0.7 Est GFR ( Amer) > 60 Est GFR (Non-Af Amer) > 60 Random Glucose 139 H Calcium 9.1 Total Bilirubin 0.5 AST 75 H D ALT 92 H Alkaline Phosphatase 150 H Total Protein 7.1 Albumin 3.8 Globulin 3.3 Albumin/Globulin Ratio 1.2 Procalcitonin Pleural pH Assessment & Plan - Assessment and Plan (Free Text) Assessment: 61yo F with right-sided pneumothorax s/p thoracenthesis on 08/25/17. Plan: - 14F Chest Tube placed - Consent obtained and on chart - Continue pleurvac to wall suction - Daily CXR - Continue Abx - Consider repeat Chest CT to evaluate for underlying cause Further recs as per Dr. Sukumar Aguilar PGY1 surgery pager: [phone] <Jim Patino - Last Filed: 08/30/17 12:38> Meds - Medications Medications: Current Medications Acetaminophen (Tylenol 325mg Tab) 650 mg PO Q6H PRN PRN Reason: Fever >100.4 F Alprazolam (Xanax) 0.5 mg PO BID PRN; Protocol PRN Reason: Anxiety Last Admin: 08/30/17 10:04 Dose: 0.5 mg Docusate Sodium (Colace) 200 mg PO DAILY [facility] Last Admin: 08/30/17 09:11 Dose: 200 mg Doxycycline Hyclate (Doryx) 100 mg PO Q12 [facility] PRN Reason: Protocol Stop: 09/02/17 22:01 Last Admin: 08/30/17 09:11 Dose: 100 mg Enoxaparin Sodium (Lovenox) 30 mg SC DAILY [facility] PRN Reason: Protocol Last Admin: 08/30/17 09:11 Dose: 30 mg Levalbuterol HCl (Xopenex) 1.25 mg IH [id number] [facility] Last Admin: 08/30/17 07:34 Dose: 1.25 mg Lidocaine (Lidoderm) 1 ea TD DAILY [facility] Last Admin: 08/30/17 09:11 Dose: 1 ea Oxycodone/Acetaminophen (Percocet 5/325 Mg Tab) 1 tab PO Q6H PRN PRN Reason: Pain, moderate (4-7) Stop: 08/31/17 22:12 Last Admin: 08/29/17 23:37 Dose: 1 tab Pantoprazole Sodium (Protonix Ec Tab) 40 mg PO 0630 [facility] Last Admin: 08/30/17 05:42 Dose: 40 mg Venlafaxine HCl (Effexor Xr) 150 mg PO DAILY [facility] Last Admin: 08/30/17 09:11 Dose: 150 mg Results - Vital Signs Recent Vital Signs: Last Vital Signs Temp 99.1 F 08/30/17 08:11 Pulse 109 H 08/30/17 10:00 Resp 19 08/30/17 08:11 BP 122/67 08/30/17 08:11 Pulse Ox 95 08/30/17 08:11 - Labs Result Diagrams: 08/30/17 07:00 08/30/17 07:00 Labs: Laboratory Results - last 24 hr 08/30/17 08/30/17 07:00 07:00 WBC 15.2 H RBC 4.50 Hgb 12.8 Hct 39.2 MCV 87.1 MCH 28.4 MCHC 32.7 RDW 12.9 Plt Count 359 MPV 10.1 Gran % 78.2 H Lymph % (Auto) 13.4 L [place] % (Auto) 6.7 H Eos % (Auto) 1.5 Baso % (Auto) 0.2 Gran # 11.85 H Lymph # (Auto) 2.0 [place] # (Auto) 1.0 H Eos # (Auto) 0.2 Baso # (Auto) 0.03 Sodium 140 Potassium 3.8 Chloride 101 Carbon Dioxide 30 Anion Gap 13 BUN 13 Creatinine 0.7 Est GFR ( Amer) > 60 Est GFR (Non-Af Amer) > 60 Random Glucose 96 Calcium 8.7 Assessment & Plan - Assessment and Plan (Free Text) Assessment: This consult done under my direct supervision Natalie Patino MD FACS
--- NOTE | 2017-08-26 10:55 | PCM.PROC ---
Procedures Attestation:: I certify that I have explained the specified Operation(s) or Procedure(s), risks, benefits and reasonable alternatives to the Patient and/or other person responsible. The opportunity was given to ask questions and all questions answered - Chest Tube Chest Tube Location: Lateral Chest Right Size of Tube (cm): 14 (14F tube) Chest Tube Procedure: Chlorhexidine Tube Sutured to Skin: Yes Sterile Dressing Applied: Yes Anesthesia: Lidocaine 1% Volume Anesthetic (mls): 10 Incision Made With: #11 blade Post Procedure: sutured to skin, sterile dressing applied, air occlusive dressing Kurtz of Air [place]: Yes Tube Drainage: fluid (Serosanguinous) Amount of Initial Drainage: 50 Post Procedure CXR?: Yes Patient Tolerated Procedure: Yes Progress: Written consent obtained and on chart. Patient prepped and draped in the usual sterile fashion. Lidocaine 1% 10cc used for local anesthesia. Right lateral chest wall, second intercostal space, 18G needle inserted and air pocket encountered. 14F tube placed using the seldinger technique. Chest tube attached to wall suction, air leak noted as the lung re- expanded. Chest tube secured to skin with 2-0 nylon sutures. Patient tolerated procedure well. Post-procedure chest x-ray with lung re-expansion noted. Dr. Patino present at bedside during entire procedure. Glynn Aguilar PGY1
--- NOTE | 2017-08-26 11:01 | RAD ---
HISTORY: s/p chest tube placement COMPARISON: 08/26/2017 FINDINGS: LUNGS: There is a right-sided chest tube with re-expansion of the lung. There is a minimal residual pneumothorax. There is persistent consolidation in the periphery of the right lung PLEURA: No significant pleural effusion identified, no pneumothorax apparent. CARDIOVASCULAR: Normal. OSSEOUS STRUCTURES: No significant abnormalities. VISUALIZED UPPER ABDOMEN: Normal. OTHER FINDINGS: None. IMPRESSION: Successful re-expansion of right lung following chest tube placement
[2017-08-26] MEDS: Azithromycin 500MG/NS 250ml 500 MG/250 ML BAG IVPB SCH (11:06)
[2017-08-26] MEDS: Venlafaxine 75 mg ER Cap PO SCH (11:09)
--- NOTE | 2017-08-26 11:21 | CP.PCM.PCO ---
Physician Communication Note - Physician Communication Note Physician Communication Note: [address]-Lung expanded/serosanguineous drainage
[2017-08-26] MEDS ORDERED: Morphine 4 mg/ml ISec IVP ONE (11:23)
[2017-08-26] MEDS: Lidocaine 5% Patch TD SCH (15:18)
--- NOTE | 2017-08-26 16:38 | PN ---
DATE: 08/26/2017 SUBJECTIVE: Patient is 61 years old who was admitted with increasing shortness of breath, was found to have right pleural effusion, underwent thoracentesis and had 3 L fluid drained. Followup CT showed large right pneumothorax. Patient underwent chest tube placement today this morning, doing well. She says shortness of breath is better, but she is sore at the site of tube insertion. OBJECTIVE: VITAL SIGNS: She is afebrile, pulse 84, respirations 20, blood pressure 132/90. LUNGS: Bilateral good airflow. No rhonchi or crackles. She still has decreased breath sounds, but better than before. HEART: S1, S2 audible. ABDOMEN: Soft, nontender. NEUROLOGIC: She is awake, alert, oriented, communicative. LABORATORY DATA: WBC is 27.9, hemoglobin 13, hematocrit 39, and platelets 356. Chemistry: Sodium 140, potassium 4.1, chloride 104, CO2 of 27. BUN 14, creatinine 0.7. Blood sugar 139. AST 75, ALT 92, alkaline phosphatase 150. CT scan of the chest was done, showed right large pneumothorax. ASSESSMENT: 1. Right pleural effusion status post thoracentesis. 2. Status post pneumothorax and had chest tube insertion. 3. Heavy smoker. 4. History of anxiety. 5. Peptic ulcer disease. PLAN: We will continue patient on current medications. She is on DVT prophylaxis. She is getting Maxipime. We will give her morphine as needed, Percocet as needed. Cut down her steroids, she is not actively wheezing anymore. We will follow this patient in a.m. Johan Santacruz MD
--- NOTE | 2017-08-26 18:47 | RAD ---
HISTORY: s/p Chest tube. Interval Changes Relevant interventional procedure(s): August 25, 2017. Thoracentesis with recovery of 3 L of fluid from the right pleural space. COMPARISON: August 26, 2017. Time of the most recent examination: 10:39 FINDINGS: LUNGS: Improved aeration of the right lower lobe. PLEURA: Stable residual pneumothorax. Chest tube again identified in the pleural space. Persistent large right pleural effusion. CARDIOVASCULAR: No radiographic findings to suggest acute or significant cardiovascular disease. OSSEOUS STRUCTURES: No significant abnormalities. VISUALIZED UPPER ABDOMEN: Normal. OTHER FINDINGS: None. IMPRESSION: Near complete re-expansion of the right lung. Stable position of chest tube in the right pleural space counting for differences in technique. Persistent and large right pleural effusion
--- NOTE | 2017-08-26 20:56 | PN ---
DATE: 08/26/2017 PULMONARY PROGRESS NOTE REFERRING PHYSICIAN: Johan Santacruz MD. SUBJECTIVE: The patient is lying in the bed, head at 45 degrees. Overnight events noted. Yesterday, had thoracenteses, almost [address] scan suggested. Lung did not inflate, so end up reconsulting Dr. Pool Antunez, who put the chest tube. About 200-300 mL serosanguineous fluid is out. She feels better, though. No nausea. No vomiting. Decreased short of breath. No cough. No leg pain or leg swelling. OBJECTIVE: GENERAL: In no acute distress. VITAL SIGNS: Temperature is 98, heart rate 100, respiratory rate is 20, blood pressure 127/86, pulse ox 93% on nasal cannula. HEENT: Moist mucous membrane. Crowded airway. Mallampati score is 4. NECK: Supple. No JVD. LUNGS: Have still decreased breath sound in the right lung. HEART: S1 and S2. ABDOMEN: Soft, nontender. No organomegaly. EXTREMITIES: No edema. NEUROLOGIC: Awake, alert. Follows simple command. MEDICATIONS: She is on doxycycline 100 mg twice a day, Effexor XR 150 mg daily, lidocaine at affected area, Lovenox 30 mg subcu daily, cefepime 1 g IV every 8 hours, Percocet 5/325 one tab every 6 hours p.r.n., Protonix 40 mg daily, Solu-Medrol 40 mg IV every 12 hours, Tylenol p.r.n. basis, Xanax 0.5 mg three times a day p.r.n., Xopenex inhaled every 6 hours. LABORATORY DATA: Shows hemoglobin is 13.1, hematocrit 39.3, WBC 28,000, platelet is 356. INR 1.16. PTT 26. Sodium 140, potassium 4.1, chloride 104, bicarbonate 27, BUN 14, creatinine 0.7, glucose 139, calcium 9.1, AST 75, ALT 92, alk phos is 150, albumin is 3.8. Microbiology: Blood culture has been negative. Repeat CAT scan today shows large right-sided pneumothorax following thoracentesis. There is some consolidation in the periphery of the right lower lobe without evidence of discrete mass. Reevaluation after re-expansion of the lung is recommended. IMPRESSION AND PLAN: Large right pleural effusion, chronic obstructive lung disease, degenerative joint disease. Finding suspicious for malignancy. Fluid is pending for cytology. Case discussed with Dr. Antunez this morning, presently has a chest tube. We will decrease Solu-Medrol to 20 every 12 hours. Continue inhaled bronchodilator. Continue antibiotics. Follow up x-ray. Thank you and we will follow with you. Ben Garcia MD
[2017-08-26] MEDS: MethylPREDNISolone 40 mg Vial IVP SCH (21:57)
--- NOTE | 2017-08-26 21:57 | PN ---
DATE: 08/26/2017 SUBJECTIVE: Patient is in bed, in no acute distress, nontoxic. OBJECTIVE: VITAL SIGNS: Temperature is 98, blood pressure is 120/80, respiratory rate of 20. HEENT: Unremarkable. NECK: Supple. LUNGS: Have decreased breath sounds. HEART: Normal S1, S2. ABDOMEN: Soft, nontender. LABORATORY EXAMINATION: Reveals a white count of 27,000, hemoglobin 13. Chemistries are noted. BUN 14, creatinine of 0.7. Blood cultures are negative. Procalcitonin is less than 0.05 from yesterday. Patient had a CAT scan of the chest. This is a large right-sided pneumothorax following thoracentesis, some consolidation in the right lower lobe. Operative note is reviewed and thoracentesis. MEDICATIONS: Review of medications reveals patient to be on Zithromax, vancomycin and cefepime. ASSESSMENT AND PLAN: This is a 61-year-old female with chronic obstructive lung disease who was seen earlier this morning in room 374, bed 1 with a chest tube. Impression, osteoarthritis. She was admitted with sepsis with respiratory distress, loculated pleural effusion, developed pneumothorax with chest tube in, left healthcare-associated pneumonia, chronic obstructive lung disease, depression, history of hysterectomy. On vancomycin, cefepime, and azithromycin intravenously. Review of the EKG reveals the patient's QTc interval would be 525 and blood cultures are negative as far. On cefepime. We will discontinue azithromycin. Discontinue the vancomycin and add doxycycline p.o. Reorder the procalcitonin and we will order a sputum culture and thoracentesis culture. We will follow with you. Gonzalo Nevarez MD
[2017-08-26] MEDS ORDERED: MethylPREDNISolone 40 mg Vial IV SCH (22:00)
[2017-08-27] MEDS: Levalbuterol 1.25 MG/3 ML Inhal Soln UD IH SCH ×4 (01:05→21:02)
[2017-08-27] MEDS: Pantoprazole 40 mg EC Tab PO SCH (05:51)
[2017-08-27] MEDS: Cefepime 1gm in NS 100ml 1 GM/100 ML BAG IVPB SCH ×3 (05:52→21:11)
[2017-08-27 06:52] LABS: GRAN # 16.96 (1.4-6.5); GRAN % 87.4 % (50.0-68.0); HEMOGLOBIN 12.6 g/dL (12.0-16.0); LYMPH # 1.5 (1.2-3.4); LYMPH % 7.5 % (22.0-35.0); MEAN CELL VOLUME 86.9 fl (80.0-105.0); MEAN CORPUSCULAR HEMOGLOBIN 28.9 pg (25.0-35.0); MEAN CORPUSCULAR HGB CONC 33.2 g/dl (31.0-37.0); MEAN PLATELET VOLUME 10.4 fl (7.0-11.0); MONO % 5.1 % (1.0-6.0); RBC 4.36 10^6/uL (3.5-6.1); RED CELL DISTRIBUTION WIDTH 12.8 % (11.5-14.5); WHITE BLOOD COUNT 19.4 10^3/ul (4.5-11.0)
[2017-08-27 07:11] LABS: ALB/GLOB RATIO 1.1 (1.1-1.8); ALBUMIN 3.4 g/dL (3.0-4.8); ALT/SGPT 106 U/L (7-56); AST/SGOT 75 U/L (14-36); BLOOD UREA NITROGEN 16 mg/dL (7-21); CALCIUM 8.7 mg/dL (8.4-10.5); GFR AFRICAN-AMERICAN > 60; GFR NON-AFRICAN AMERICAN > 60
[2017-08-27] MEDS ORDERED: Iohexol 350 MG/100 ML VIAL ONE (07:27)
--- NOTE | 2017-08-27 09:52 | CP.PCM.PN ---
Subjective - Date & Time of Evaluation Date of Evaluation: 08/27/17 Time of Evaluation: 09:49 - Subjective Subjective: Patient seen and examined at bedside. Per nursing no acute events occurred overnight. Patient reports an improvement in her shortness of breath. Patient denies any chest pain, lightheadedness, dizziness, fevers, chills, abdominal pain, or any other complaints. Objective - Vital Signs/Intake and Output Vital Signs (last 24 hours): Temp Pulse Resp BP Pulse Ox 98 F 85 20 125/74 94 L 08/26/17 20:30 08/27/17 06:00 08/27/17 01:00 08/27/17 01:00 08/27/17 01:00 Intake and Output: 08/27/17 08/27/17 06:59 18:59 Intake Total 1240 Output Total 1800 Balance -560 - Medications Medications: Current Medications Acetaminophen (Tylenol 325mg Tab) 650 mg PO Q6H PRN PRN Reason: Fever >100.4 F Alprazolam (Xanax) 0.5 mg PO BID PRN; Protocol PRN Reason: Anxiety Doxycycline Hyclate (Doryx) 100 mg PO Q12 SILVIA PRN Reason: Protocol Stop: 09/02/17 22:01 Last Admin: 08/26/17 21:50 Dose: 100 mg Enoxaparin Sodium (Lovenox) 30 mg SC DAILY SILVIA PRN Reason: Protocol Last Admin: 08/26/17 09:21 Dose: Not Given Cefepime HCl (Maxipime 1gm) 1 gm in 100 mls @ 100 mls/hr IVPB Q8 SILVIA PRN Reason: Protocol Last Admin: 08/27/17 05:52 Dose: 100 mls/hr Levalbuterol HCl (Xopenex) 1.25 mg IH [id number] COUNTS INCLUDE 234 BEDS AT THE [facility] Last Admin: 08/27/17 07:40 Dose: 1.25 mg Lidocaine (Lidoderm) 1 ea TD DAILY SILVIA Last Admin: 08/26/17 15:18 Dose: 1 ea Methylprednisolone (Solu-Medrol) 20 mg IVP Q12 SILVIA Last Admin: 08/26/17 21:57 Dose: 20 mg Oxycodone/Acetaminophen (Percocet 5/325 Mg Tab) 1 tab PO Q6H PRN PRN Reason: Pain, moderate (4-7) Stop: 08/28/17 15:28 Last Admin: 08/26/17 22:32 Dose: 1 tab Pantoprazole Sodium (Protonix Ec Tab) 40 mg PO 0630 COUNTS INCLUDE 234 BEDS AT THE [facility] Last Admin: 08/27/17 05:51 Dose: 40 mg Venlafaxine HCl (Effexor Xr) 150 mg PO DAILY COUNTS INCLUDE 234 BEDS AT THE [facility] Last Admin: 08/26/17 11:09 Dose: 150 mg - Labs Labs: 08/27/17 06:00 08/27/17 06:00 PT 13.4 SECONDS (9.4-12.5) H 08/26/17 09:48 INR 1.16 (0.93-1.08) H 08/26/17 09:48 APTT 25.9 Seconds (25.1-36.5) 08/26/17 09:48 - Head Exam Head Exam: ATRAUMATIC, NORMAL INSPECTION, NORMOCEPHALIC - Eye Exam Eye Exam: EOMI - ENT Exam ENT Exam: Mucous Membranes Moist - Respiratory Exam Respiratory Exam: NORMAL BREATHING PATTERN - Cardiovascular Exam Cardiovascular Exam: REGULAR RHYTHM - GI/Abdominal Exam GI & Abdominal Exam: Normal Bowel Sounds - Extremities Exam Extremities Exam: Normal Inspection - Back Exam Back Exam: NORMAL INSPECTION Additional comments: right lateral superior chest tube placement. clean dressing intact. no signs of erythema or discharge. - Neurological Exam Neurological Exam: Alert, Awake - Psychiatric Exam Psychiatric exam: Normal Affect, Normal Mood - Skin Skin Exam: Dry, Intact Assessment and Plan - Assessment and Plan (Free Text) Assessment: 61yo F with right-sided pneumothorax s/p thoracenthesis on 08/25/17. Plan: - Incentive spirometry - Continue pleurvac to wall suction - Continue Daily CXR - Continue Abx Will discuss with Dr. Patino for further recommendations.
--- NOTE | 2017-08-27 10:14 | CT ---
PROCEDURE: CT Chest with contrast HISTORY: possible mass, R pneumothorax S/P pigtail cath COMPARISON: August 26, 2017. CT thorax TECHNIQUE: Contiguous axial images were obtained through the chest with intravenous contrast enhancement. Sagittal and coronal reconstructions were performed. IV contrast: 100 cc Omnipaque 350 Radiation dose (DLP): 268.59 mGy-cm. This CT exam was performed using one or more of the following dose reduction techniques: Automated exposure control, adjustment of the mA and/or kV according to patient size, and/or use of iterative reconstruction technique. FINDINGS: LUNGS: Near complete re-expansion of the right lung. Peripheral consolidative changes right lower lobe. This affects both lateral segment and basilar segment. No discrete pulmonary mass. 4.7 x 7.2 mm pulmonary nodule well-circumscribed noncalcified anterior segment right upper lobe. Underlying centrilobular emphysematous change. MEDIASTINUM: Unremarkable thoracic aorta. No aneurysm or dissection. Normal sized heart. Main pulmonary artery unremarkable. No vascular congestion. No lymphadenopathy. PLEURA: Small, complex loculated right pleural effusion. Chest tube identified in the right pleural space. This should be advanced which will better situated the chest tube and a loculated pneumothorax anteriorly. BONES: No fracture. No destructive lesion. UPPER ABDOMEN: Grossly unremarkable. OTHER FINDINGS: None. IMPRESSION: 1. Near complete re-expansion of what is now a small loculated anterior right pneumothorax. Associated complex right pleural effusion. Chest tube identified in the periphery of the pleural space. 2. Small well-circumscribed pulmonary nodule right upper lobe. This solid, pulmonary nodule that is < 6 mm (mean of orthogonal measurements) in size. According to the 2017 Fleischner criteria, if the patient is low risk, no routine follow-up is recommended. If the patient is high risk, an optional CT at 12 months is recommended.
[2017-08-27] MEDS: Venlafaxine 75 mg ER Cap PO SCH (10:18)
[2017-08-27] MEDS: MethylPREDNISolone 40 mg Vial IVP SCH (10:18)
[2017-08-27] MEDS: Lidocaine 5% Patch TD SCH (10:18)
--- NOTE | 2017-08-27 11:16 | PN ---
DATE: 08/27/2017 SUBJECTIVE: The patient is in bed, in no acute distress, nontoxic and she states she is feeling much better. She had no fevers. PHYSICAL EXAMINATION: VITAL SIGNS: Temperature is 98, blood pressure is 125/70, respiratory rate of 20, heart rate of 101. HEENT: Unremarkable. NECK: Supple. LUNGS: Have decreased breath sounds. HEART: Normal S1, S2. ABDOMEN: Soft, nontender. LABORATORY EXAMINATION: Reveals a white count of 19,400, hemoglobin of 12, platelets of 332. Chemistries reveals a BUN of 16, creatinine of 0.8. LFTs are noted. Procalcitonin is less than 0.05. Blood cultures are negative. ASSESSMENT AND PLAN: A 61-year-old female with chronic obstructive lung disease and seen earlier at [facility], bed 1, has a chest tube admitted with sepsis with respiratory distress, loculated pleural effusion, developed a pneumothorax, has a chest tube. Left healthcare-associated pneumonia, chronic obstructive lung disease, depression, history of hysterectomy. Currently, on vanco and cefepime and azithromycin, which was changed now to doxycycline and cefepime. The patient is on doxycycline and cefepime and doxycycline is p.o. and the patient also had a CAT scan of the chest yesterday. There is some consolidation in the periphery of the right lower lobe without evidence of a discrete mass. Reevaluation after re-expansion of the lung is recommended. Dr. Garcia's progress note is reviewed. He states the patient has a large right pleural effusion, chronic obstructive lung disease, degenerative joint disease, suspicious for malignancy. Cytology is pending from the pleural fluid and we will check on the pleural fluid cultures and thus far, the blood cultures are negative. The sputum cultures are pending. Methicillin-resistant Staphylococcus aureus screen is also pending. In addition to the urine culture and pleural fluid culture is pending. Gonzalo Nevarez MD
[2017-08-27] MEDS: Enoxaparin 30 mg Syringe SC SCH (11:27)
--- NOTE | 2017-08-27 18:02 | PN ---
DATE: 08/27/2017 SUBJECTIVE: Patient is 61 years old, seen and examined, sitting in chair, seems to be very comfortable. She states her shortness of breath is much better. PHYSICAL EXAMINATION: VITAL SIGNS: She is afebrile, pulse 87, respirations 18, blood pressure 131/73. LUNGS: Bilateral fair airflow. No rhonchi or crackles. She has decreased breath sounds on the right lung both in upper, middle and lower lobes, fair flow in the left lung region. HEART: S1, S2 audible. ABDOMEN: Soft, nontender. No rebound. No guarding. NEUROLOGICAL: She is awake, alert, oriented, communicative. LABORATORY DATA: WBC is 19.4, hemoglobin 12.6, hematocrit 37.9, platelets . Chemistry: Sodium 139, potassium 4.6, chloride 102, CO2 28, BUN 16, creatinine 0.8, blood sugar 133, AST 75, ALT 106, alkaline phosphatase is 137. Blood cultures are negative. CT scan of the chest was done yesterday and shows near complete reexpansion of right lung and small loculated anterior pneumothorax associated complex right pleural effusion, chest tube was identified and small well-circumscribed pulmonary nodule in right upper lobe 6 mm that needs followup. ASSESSMENT: 1. Status post pleural effusion and thoracentesis followed by pneumothorax and chest tube placed. 2. History of depression. 3. Leukocytosis, improving. 4. Active smoker. 5. Peptic ulcer disease. PLAN: Currently, the patient is on doxycycline. She is on DVT prophylaxis. We will continue cefepime. She is on Protonix. She is getting IV steroids that we can taper down and we will follow this patient in a.m. Johan Santacruz MD
--- NOTE | 2017-08-27 23:40 | PN ---
DATE: 08/27/2017 PULMONARY PROGRESS NOTE REFERRING PHYSICIAN: Johan Santacruz MD. SUBJECTIVE: She is lying in the bed, head at 45 degrees. Still has a chest tube with low suction. Clinically, she feels better. Decreased cough, decreased shortness of breath. No nausea. No vomiting or diarrhea. No leg pain or leg swelling. OBJECTIVE: GENERAL: In no acute distress. VITAL SIGNS: Temp is 98, heart rate is 98, respiratory rate is 20, blood pressure 170/79, pulse ox 98% on nasal cannula. HEENT: Moist mucous membrane. No ulcer or thrush noted. NECK: Supple. No JVD. LUNGS: Have decreased breath sound in the right lung. HEART: S1 and S2. ABDOMEN: Soft, nontender. No organomegaly. EXTREMITIES: There is no edema. NEUROLOGIC: Awake, alert. Follows simple command. MEDICATIONS: She is on Colace 200 mg daily, doxycycline 100 mg twice a day, Effexor 150 mg daily, lidocaine patch at affected area, Lovenox 30 mg daily, cefepime 1 g IV every 8 hours, Percocet 5/325 one tab every 6 hours p.r.n., Protonix 40 mg daily, Solu-Medrol 20 mg every 12 hours, Tylenol p.r.n., Xanax 0.5 mg twice a day p.r.n. and Xopenex inhaled every 6 hours. LABORATORY DATA: Shows hemoglobin 12.6, hematocrit 37.9, WBC 19,000, platelet count is 332. Sodium 139, potassium 4.6, chloride 102, bicarbonate 28, BUN 16, creatinine 0.8, glucose is 133, calcium is 8.7. AST 75, ALT 106, alkaline phosphatase is137. Albumin is 3.4, procalcitonin 0.05. Microbiology, blood cultures have been negative. Chest tube fluid, so far no growth. 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 Chest tube was identified in the periphery of the pleural space; small well-circumscribed pulmonary nodule, right upper lobe. IMPRESSION AND PLAN: Large right pleural effusion requiring thoracentesis, had pneumothorax requiring chest tube, chronic obstructive lung disease, degenerative joint disease, still pending cytology. CT finding is improved with reexpansion of lung. A small lung nodule according to CT. Continue CT on suction for now, there is some air leak though. Decrease Solu-Medrol to 20 mg daily. Continue incentive spirometry for pulmonary toilet. Followup x-ray in the morning. Thank you and we will follow with you. Ben Garcia MD
[2017-08-28] MEDS: Oxycodone/Acetaminophen 5/325 mg Tab PO PRN ×3 (02:08→22:36)
[2017-08-28] MEDS: Levalbuterol 1.25 MG/3 ML Inhal Soln UD IH SCH ×4 (02:35→19:49)
[2017-08-28] MEDS: Cefepime 1gm in NS 100ml 1 GM/100 ML BAG IVPB SCH ×3 (05:28→22:09)
[2017-08-28] MEDS: Pantoprazole 40 mg EC Tab PO SCH (05:32)
[2017-08-28 06:58] LABS: BASO # 0.01 K/mm3 (0.0-2.0); BASO % 0.1 % (0.0-3.0); EOS # 0.1 (0.0-0.7); EOS % 0.5 % (1.5-5.0); GRAN # 14.67 (1.4-6.5); GRAN % 77.6 % (50.0-68.0); HEMOGLOBIN 13.7 g/dL (12.0-16.0); LYMPH # 2.8 (1.2-3.4); LYMPH % 14.7 % (22.0-35.0); MEAN CELL VOLUME 88.5 fl (80.0-105.0); MEAN CORPUSCULAR HEMOGLOBIN 28.5 pg (25.0-35.0); MEAN CORPUSCULAR HGB CONC 32.2 g/dl (31.0-37.0); MEAN PLATELET VOLUME 10.6 fl (7.0-11.0); MONO # 1.3 (0.1-0.6); MONO % 7.1 % (1.0-6.0); RBC 4.8 10^6/uL (3.5-6.1); WHITE BLOOD COUNT 18.9 10^3/ul (4.5-11.0)
[2017-08-28 07:01] LABS: ALB/GLOB RATIO 1.1 (1.1-1.8); ALBUMIN 3.6 g/dL (3.0-4.8); ALT/SGPT 128 U/L (7-56); AST/SGOT 73 U/L (14-36); BLOOD UREA NITROGEN 17 mg/dL (7-21); CALCIUM 9.2 mg/dL (8.4-10.5); GFR AFRICAN-AMERICAN > 60; GFR NON-AFRICAN AMERICAN > 60
[2017-08-28] MEDS: Venlafaxine 75 mg ER Cap PO SCH (10:00)
[2017-08-28] MEDS: Lidocaine 5% Patch TD SCH (10:00)
[2017-08-28] MEDS ORDERED: MethylPREDNISolone 40 mg Vial IVP SCH (10:00)
[2017-08-28] MEDS: Enoxaparin 30 mg Syringe SC SCH (10:00)
--- NOTE | 2017-08-28 10:22 | RAD ---
HISTORY: R pneumothorax S/P pigtail chest tube COMPARISON: 08/26/2017 FINDINGS: LUNGS: No active pulmonary disease. PLEURA: There is reaccumulation of a moderate size right pleural effusion. A right-sided chest tube remains in place. CARDIOVASCULAR: Normal. OSSEOUS STRUCTURES: No significant abnormalities. VISUALIZED UPPER ABDOMEN: Normal. OTHER FINDINGS: None. IMPRESSION: There is reaccumulation of a moderate size right pleural effusion. A right-sided chest tube remains in place. No pneumothorax
--- NOTE | 2017-08-28 11:43 | CP.PCM.PN ---
Subjective - Date & Time of Evaluation Date of Evaluation: 08/28/17 Time of Evaluation: 11:40 - Subjective Subjective: Surgery: Dr. Patino Pt seen and examined. No acute overnight events. Pt states she feels well this morning and doesn't have any complaints. She admits to some discomfort around chest pigtail insertion site but otherwise denies pain. Denies N/V, F/C, chest pain or SOB. Objective - Vital Signs/Intake and Output Vital Signs (last 24 hours): Temp Pulse Resp BP Pulse Ox 97.8 F 92 H 20 130/85 96 08/28/17 08:37 08/28/17 08:37 08/28/17 08:37 08/28/17 08:37 08/28/17 08:37 Intake and Output: 08/28/17 08/28/17 06:59 18:59 Intake Total 540 360 Output Total 700 Balance -160 360 - Medications Medications: Current Medications Acetaminophen (Tylenol 325mg Tab) 650 mg PO Q6H PRN PRN Reason: Fever >100.4 F Alprazolam (Xanax) 0.5 mg PO BID PRN; Protocol PRN Reason: Anxiety Last Admin: 08/28/17 10:02 Dose: 0.5 mg Docusate Sodium (Colace) 200 mg PO DAILY SILVIA Last Admin: 08/28/17 09:59 Dose: 200 mg Doxycycline Hyclate (Doryx) 100 mg PO Q12 SILVIA PRN Reason: Protocol Stop: 09/02/17 22:01 Last Admin: 08/28/17 09:59 Dose: 100 mg Enoxaparin Sodium (Lovenox) 30 mg SC DAILY SILVIA PRN Reason: Protocol Last Admin: 08/28/17 10:00 Dose: 30 mg Cefepime HCl (Maxipime 1gm) 1 gm in 100 mls @ 100 mls/hr IVPB Q8 SILVIA PRN Reason: Protocol Last Admin: 08/28/17 05:28 Dose: 100 mls/hr Levalbuterol HCl (Xopenex) 1.25 mg IH [id number] SILVIA Last Admin: 08/28/17 07:42 Dose: 1.25 mg Lidocaine (Lidoderm) 1 ea TD DAILY SILVIA Last Admin: 08/28/17 10:00 Dose: 1 ea Methylprednisolone (Solu-Medrol) 20 mg IVP DAILY [facility] Last Admin: 08/28/17 10:01 Dose: 20 mg Oxycodone/Acetaminophen (Percocet 5/325 Mg Tab) 1 tab PO Q6H PRN PRN Reason: Pain, moderate (4-7) Stop: 08/28/17 15:28 Last Admin: 08/28/17 02:08 Dose: 1 tab Pantoprazole Sodium (Protonix Ec Tab) 40 mg PO 0630 [facility] Last Admin: 08/28/17 05:32 Dose: 40 mg Venlafaxine HCl (Effexor Xr) 150 mg PO DAILY [facility] Last Admin: 08/28/17 10:00 Dose: 150 mg - Labs Labs: 08/28/17 05:30 08/28/17 05:30 PT 13.4 SECONDS (9.4-12.5) H 08/26/17 09:48 INR 1.16 (0.93-1.08) H 08/26/17 09:48 APTT 25.9 Seconds (25.1-36.5) 08/26/17 09:48 - Constitutional Appears: Well, No Acute Distress - Head Exam Head Exam: ATRAUMATIC, NORMOCEPHALIC - ENT Exam ENT Exam: Mucous Membranes Moist - Respiratory Exam Respiratory Exam: NORMAL BREATHING PATTERN Additional comments: Chest tube in place on R; on suction with 80cc serosang drainage over 24hrs. No air leak noted - Cardiovascular Exam Cardiovascular Exam: RRR - GI/Abdominal Exam GI & Abdominal Exam: Soft. absent: Distended - Neurological Exam Neurological Exam: Alert, Awake, Oriented x3 - Skin Skin Exam: Dry, Warm Assessment and Plan - Assessment and Plan (Free Text) Assessment: 61F with R pleural effusion & pneumo s/p pigtail insertion Plan: - cont chest tube on suction; monitor output - daily CXR - WBC slowly trending down; cont to monitor - encourage ambulation & IS use - d/w Dr. Sukumar Pablo, PGY-3
--- NOTE | 2017-08-28 14:28 | PN ---
DATE: 08/28/2017 SUBJECTIVE: The patient is 61-year-old, seen and examined. She states she is doing a lot better. Less shortness of breath. No cough. PHYSICAL EXAMINATION: VITAL SIGNS: She is afebrile, pulse 92, respirations 20, blood pressure 130/85. LUNGS: Bilateral fair airflow. No rhonchi or crackle. HEART: S1 and S2 audible. ABDOMEN: Soft. Nontender. No rebound. No guarding. NEUROLOGIC: She is awake, alert, oriented, communicative. EXTREMITIES: Bilateral leg, no edema. LABORATORY EXAM: WBC 18.9, hemoglobin 13, hematocrit 42, platelet 357. Chemistry: Sodium 143, potassium 3.9, chloride 102, CO2 of 32, BUN 17, creatinine 0.8, blood sugar of 99, AST 73, ALT 128, alk phos is 143. HIV test is negative. She had x-ray chest done today shows there is reaccumulation of moderate-size right pleural effusion and right-sided chest tube remains in place. No pneumothorax noted. ASSESSMENT: 1. Status post thoracentesis of right pleural effusion. Etiology is still unclear. Does not seem to be exudate. 2. Pneumothorax, status post chest tube insertion. 3. Chronic obstructive pulmonary disease. 4. History of depression. 5. Active smoker. PLAN: Currently, the patient is on doxycycline. She is on Colace. She is getting Effexor. I will continue her on DVT prophylaxis. Taper down the steroid. She is anxious to go home. The patient has pulmonary nodule that needs close followup. Johan Santacruz MD
--- NOTE | 2017-08-28 17:06 | PN ---
DATE: 08/28/2017 SUBJECTIVE: The patient is in bed, in no acute distress, nontoxic. PHYSICAL EXAMINATION: VITAL SIGNS: Temperature is 97, blood pressure is 130/80, respiratory rate of 20. HEENT: Examination of HEENT is unremarkable. NECK: Supple. LUNGS: Have decreased breath sounds. HEART: Normal S1 and S2. ABDOMEN: Soft. LABORATORY DATA: Laboratory examination reveals a white count of 18,900, hemoglobin of 13, platelets of 357. Chemistries reveals a BUN of 17, creatinine of 0.8. Procalcitonin is less than 0.05. Serology for HIV is negative. Pleural fluid pH is 7.5. The cultures from the blood are negative. The cultures are pending. Review of orders reveals the patient to be on doxycycline and cefepime, Solu-Medrol. The patient's chest x-ray from this morning: No active pulmonary disease. ASSESSMENT AND PLAN: A 61-year-old female with a chronic obstructive lung disease with a chest tube, admitted with sepsis, respiratory distress, loculated pleural effusion, developed pneumothorax, chest tube, left healthcare-associated pneumonia, depression, history of hysterectomy, on cefepime and Zithromax. Yesterday's chest x-ray is noted. Cultures are pending from the chest fluid. Currently, on doxycycline and cefepime. We will follow with you. Gonzalo Nevarez MD
--- NOTE | 2017-08-28 20:16 | PN ---
DATE: 08/28/2017 PULMONARY PROGRESS NOTE REFERRING PHYSICIAN: Johan Santacruz MD. SUBJECTIVE: Patient is lying in the bed. Head at 45 degrees. Feels better. Decreased cough, decreased shortness of breath. Still has a chest tube draining bloody secretion. No air leak noted. No nausea, no vomiting, no diarrhea. No leg pain or leg swelling. OBJECTIVE: GENERAL: In no acute distress. VITAL SIGNS: Temperature is 98, heart rate is 105, respiratory is 20, blood pressure 130/85, pulse ox 93% room air. HEENT: Moist mucous membrane. Crowded airway. NECK: Supple. No JVD. LUNGS: Have decreased breath sound in the right lung. Has a right-sided chest tube. HEART: S1 and S2. ABDOMEN: Soft, nontender, no organomegaly. EXTREMITIES: No edema. NEUROLOGIC: Awake, alert, and follows simple command. MEDICATIONS: She is on Colace 200 mg daily, doxycycline 100 mg twice a day, Effexor 150 mg daily, lidocaine patch at affected area, Lovenox 30 mg subcu daily, cefepime 1 g IV every 8 hour, Protonix 40 mg daily, Solu-Medrol 20 mg daily, Tylenol p.r.n., Xanax 0.5 mg twice a day p.r.n., Xopenex inhaled every 6 hours. LABORATORY DATA: Shows hemoglobin 13.7, hematocrit 42.5, WBC 18.9, platelet count is 357. Sodium 143, potassium 3.9, chloride 102, bicarbonate 32, BUN 17, creatinine 0.8, glucose 99, calcium is 9.2. AST 73, ALT 128, alk phos is 143. Albumin is 3.6, procalcitonin less than 0.05. Chest x-ray done today shows reaccumulation of moderate sized right pleural effusion. Right-sided chest tube remains in the place. IMPRESSION AND PLAN: Large pleural effusion requiring thoracentesis with pneumothorax requiring chest tube placement, chronic obstructive lung disease, degenerative joint disease. Still waiting for cytology report. Pulmonary point of view, clinically she is much better, breathing better. Shortness of breath is improved. Bothersome is reaccumulation of effusion. For now, continue chest tube on suction. We will get repeat chest x-ray in the morning. Awaiting for cytology report on pleural effusion. May need VATS before making the decision. We will wait for the cytology report. We will discontinue Solu-Medrol. Continue inhaled bronchodilator. Gastric prophylaxis, deep venous thrombosis prophylaxis. Thank you and we will follow with you. Ben Garcia MD
[2017-08-29] MEDS: Levalbuterol 1.25 MG/3 ML Inhal Soln UD IH SCH ×4 (01:36→20:00)
[2017-08-29] MEDS: Cefepime 1gm in NS 100ml 1 GM/100 ML BAG IVPB SCH (06:11)
[2017-08-29] MEDS: Pantoprazole 40 mg EC Tab PO SCH (06:12)
[2017-08-29 07:17] LABS: BASO # 0.01 K/mm3 (0.0-2.0); BASO % 0.1 % (0.0-3.0); EOS # 0.1 (0.0-0.7); EOS % 1.1 % (1.5-5.0); GRAN # 9.91 (1.4-6.5); GRAN % 74.3 % (50.0-68.0); HEMOGLOBIN 12.4 g/dL (12.0-16.0); LYMPH # 2.4 (1.2-3.4); LYMPH % 17.8 % (22.0-35.0); MEAN CELL VOLUME 87.4 fl (80.0-105.0); MEAN CORPUSCULAR HEMOGLOBIN 28.4 pg (25.0-35.0); MEAN CORPUSCULAR HGB CONC 32.5 g/dl (31.0-37.0); MEAN PLATELET VOLUME 10.3 fl (7.0-11.0); MONO # 0.9 (0.1-0.6); MONO % 6.7 % (1.0-6.0); RBC 4.36 10^6/uL (3.5-6.1); RED CELL DISTRIBUTION WIDTH 12.8 % (11.5-14.5); WHITE BLOOD COUNT 13.3 10^3/ul (4.5-11.0)
--- NOTE | 2017-08-29 08:19 | PN ---
DATE: 08/29/2017 HISTORY OF PRESENT ILLNESS: Ms. Lucia is a 61-year-old female admitted with a large right pleural effusion. CAT scan of the chest showed small lung nodule, sub-centimeter, with a large pleural effusion which was drained. Cytology on the pleural fluid pending. She also had leukocytosis, currently on IV antibiotics. Post thoracocentesis, lung has expanded. Currently, evaluated by Dr. Garcia, Pulmonary. She has been noncompliant in the past. History of depression. PAST MEDICAL HISTORY: Depression, hysterectomy, generalized osteoarthritis. ALLERGIES: NO KNOWN DRUG ALLERGIES. HOME MEDICATION: Effexor, vitamin D, Celebrex. SOCIAL HISTORY: Chronic smoker. FAMILY HISTORY: Noncontributory. REVIEW OF SYSTEMS: Shortness of breath has improved. No chest pain.. Rest of the 12-point review of systems reviewed negative. PHYSICAL EXAMINATION: GENERAL: Awake, alert, oriented. VITAL STABLE: Stable. Temperature is 97.8, heart rate 80 per minute, blood pressure 120/70. HEENT: Pallor positive. NECK: No lymphadenopathy. CHEST: Air entry present and equal bilaterally. No added sounds. CARDIOVASCULAR: S1, S2 normal. No murmur. No gallop. ABDOMEN: Soft, nontender. No hepatosplenomegaly. EXTREMITIES: No edema. NEURO: Awake, alert, oriented x3. No focal sensory or motor deficit. LABORATORY DATA: White count 18.9, hemoglobin 13.7, hematocrit 42, platelet 357. Sodium 143, potassium 3.9, creatinine 0.8. Blood culture, urine culture and sputum culture, no growth. ASSESSMENT/PLAN 1. Leukocytosis. 2. Right pleural effusion. 3. Right upper lobe nodule. 4. Depression. 5.. Osteoarthritis. PLAN She is currently on an IV antibiotics, cefepime and doxycycline. Infectious Disease, Dr. Nevarez, following. Dr. Garcia following. Notes reviewed.. Deep venous thrombosis prophylaxis with Lovenox 30 mg subcu daily. Thoracocentesis done. Pleural fluid cytology pending and is currently on Effexor 150 mg p.o. daily, continue that. Bronchodilators to continue. Pleural fluid serosanguineous. Possibility of mesothelioma to be ruled out. recommend MRI chest to rule out pleural lesions. She might need VATS and pleural biopsy. Lizbeth Cabrales MD [facility] # [id number] MTDLouis
--- NOTE | 2017-08-29 08:52 | RAD ---
HISTORY: R pneumothorax S/P pigtail chest tube COMPARISON: No prior. FINDINGS: LUNGS: No active pulmonary disease. PLEURA: There is a moderate size pleural effusion. This is unchanged. Right-sided chest tube remains in place. There is a kink in the chest tube outside of the chest. This could cause obstruction. Clinical correlation is suggested CARDIOVASCULAR: Normal. OSSEOUS STRUCTURES: No significant abnormalities. VISUALIZED UPPER ABDOMEN: Normal. OTHER FINDINGS: None. IMPRESSION: There is a moderate size pleural effusion. This is unchanged. Right-sided chest tube remains in place. There is a kink in the chest tube outside of the chest. This could cause obstruction. Clinical correlation is suggested
--- NOTE | 2017-08-29 09:08 | CP.PCM.PN ---
Subjective - Date & Time of Evaluation Date of Evaluation: 08/29/17 Time of Evaluation: 09:01 - Subjective Subjective: Surgery: Dr. Patino Pt seen and examined. No acute overnight events. States she feels better and doesn't have any shortness of breath. Pain is also well controlled. She admits to being out of bed to chair but states she hasn't walked around. Denies N/V, F/ C. Objective - Vital Signs/Intake and Output Vital Signs (last 24 hours): Temp Pulse Resp BP Pulse Ox 97.5 F L 92 H 20 136/84 97 08/29/17 08:28 08/29/17 08:28 08/29/17 08:28 08/29/17 08:28 08/29/17 08:28 Intake and Output: 08/29/17 08/29/17 06:59 18:59 Intake Total 300 Output Total 1000 Balance -700 - Medications Medications: Current Medications Acetaminophen (Tylenol 325mg Tab) 650 mg PO Q6H PRN PRN Reason: Fever >100.4 F Alprazolam (Xanax) 0.5 mg PO BID PRN; Protocol PRN Reason: Anxiety Last Admin: 08/29/17 06:19 Dose: 0.5 mg Docusate Sodium (Colace) 200 mg PO DAILY [facility] Last Admin: 08/28/17 09:59 Dose: 200 mg Doxycycline Hyclate (Doryx) 100 mg PO Q12 [facility] PRN Reason: Protocol Stop: 09/02/17 22:01 Last Admin: 08/28/17 22:08 Dose: 100 mg Enoxaparin Sodium (Lovenox) 30 mg SC DAILY [facility] PRN Reason: Protocol Last Admin: 08/28/17 10:00 Dose: 30 mg Levalbuterol HCl (Xopenex) 1.25 mg IH [id number] [facility] Last Admin: 08/29/17 07:37 Dose: 1.25 mg Lidocaine (Lidoderm) 1 ea TD DAILY [facility] Last Admin: 08/28/17 10:00 Dose: 1 ea Oxycodone/Acetaminophen (Percocet 5/325 Mg Tab) 1 tab PO Q6H PRN PRN Reason: Pain, moderate (4-7) Stop: 08/31/17 22:12 Pantoprazole Sodium (Protonix Ec Tab) 40 mg PO 0630 [facility] Last Admin: 08/29/17 06:12 Dose: 40 mg Venlafaxine HCl (Effexor Xr) 150 mg PO DAILY [facility] Last Admin: 08/28/17 10:00 Dose: 150 mg - Labs Labs: 08/29/17 06:30 08/28/17 05:30 PT 13.4 SECONDS (9.4-12.5) H 08/26/17 09:48 INR 1.16 (0.93-1.08) H 08/26/17 09:48 APTT 25.9 Seconds (25.1-36.5) 08/26/17 09:48 - Constitutional Appears: Well, No Acute Distress - Head Exam Head Exam: ATRAUMATIC, NORMOCEPHALIC - Eye Exam Eye Exam: Normal appearance - ENT Exam ENT Exam: Mucous Membranes Moist - Respiratory Exam Respiratory Exam: NORMAL BREATHING PATTERN Additional comments: R chest tube in place with serous output, small air leak noted - Cardiovascular Exam Cardiovascular Exam: RRR - GI/Abdominal Exam GI & Abdominal Exam: Soft. absent: Tenderness - Neurological Exam Neurological Exam: Alert, Awake, Oriented x3 - Skin Skin Exam: Dry, Warm Assessment and Plan - Assessment and Plan (Free Text) Assessment: 61F with R pneumothorax s/p thoracentesis for pleural effusion; s/p bedside pigtail insertion Plan: - CXR this morning similar to yesterday with persistent small pleural effusion on R - keep CT on suction; monitor output - f/u cytology - encourage ambulation & IS use - d/w Dr. Sukumar Pablo, PGY-3
--- NOTE | 2017-08-29 10:02 | PN ---
DATE: 08/29/2017 SUBJECTIVE: The patient is seen earlier today in room 374, bed 1. Awake and alert. No fevers, no chills. Uneventful night. PHYSICAL EXAMINATION: VITAL SIGNS: Temperature is 98, blood pressure is 125/80, respiratory rate of 20, heart rate of 101. HEENT: Examination of HEENT is unremarkable. NECK: Supple. LUNGS: Have decreased breath sounds. HEART: Normal S1, S2. ABDOMEN: Soft, nontender. LABORATORY DATA: Laboratory examination reveals a white count of 13,300, hemoglobin of 12 and platelets of 313. Chemistries reveals a BUN of 17, creatinine of 0.8, AST is 73, ALT is 128, alk phos is 143. Serology is HIV negative. Microbiology reveals the blood cultures are negative. Sputum cultures are negative. Repeat sputum cultures are pending. Nares are MRSA is not detected. Review of orders reveals the patient to be on p.o. doxycycline and IV cefepime with two negative procalcitonin. Dr. Garcia's note from yesterday is reviewed and Dr. Santacruz's note is reviewed. ASSESSMENT AND PLAN: A 61-year-old female, seen earlier today in room 374, bed 1 with chronic obstructive lung disease, who was admitted with sepsis, respiratory distress, loculated large pleural effusion, developed pneumothorax requiring chest tube with a left-sided healthcare-associated pneumonia and depression, a history of hysterectomy and with negative procalcitonin, negative cultures from the blood, negative cultures from the pleural fluid, negative methicillin-resistant Staphylococcus aureus and sputum cultures are pending. The patient is on day #5 of cefepime and doxycycline with negative procalcitonin. We will discontinue the cefepime. Complete 5-7 days of doxycycline. Awaiting for pathology and cytology of the pleural fluid. Etiology of large pleural effusion is not entirely clear. Gonzalo Nevarez MD
[2017-08-29] MEDS: Venlafaxine 75 mg ER Cap PO SCH (11:01)
[2017-08-29] MEDS: Enoxaparin 30 mg Syringe SC SCH (11:02)
[2017-08-29] MEDS: Lidocaine 5% Patch TD SCH (11:02)
[2017-08-29] MEDS: Oxycodone/Acetaminophen 5/325 mg Tab PO PRN ×2 (15:29→23:37)
--- NOTE | 2017-08-29 17:50 | PN ---
DATE: 08/29/2017 PULMONARY PROGRESS NOTE REFERRING PHYSICIAN: Johan Santacruz MD. SUBJECTIVE: She is sitting on side of the bed. Night was unremarkable. Still has a chest tube, drainage is decreased. Breathing better. No nausea. No vomiting, diarrhea, leg pain, leg swelling. OBJECTIVE: GENERAL: In no acute distress. VITAL SIGNS: Temperature is 98, heart rate is 92, respiratory rate is 20, blood pressure 136/84, pulse ox 97% on 2 L nasal cannula. HEENT: Moist mucous membrane. Crowded airway. NECK: Supple. No JVD. LUNGS: Have decreased breath sound in the right lung. Has a right-sided chest tube. HEART: S1 and S2. ABDOMEN: Soft, nontender. No organomegaly. EXTREMITIES: There is no edema. NEUROLOGICAL: Awake and alert. Follows simple command. LABORATORY DATA: Shows hemoglobin 12.4, hematocrit 38.1, WBC 13.3, platelet is 313. LDH is 510. Microbiology: Blood culture, sputum culture, urine all are unremarkable. Chest x-ray done today shows chest tube, right lung. The right effusion is still there, moderate size. MEDICATIONS: She is on Colace 200 mg daily, doxycycline 100 mg twice a day, Effexor XR 150 mg daily, Lidoderm patch at affected area, Lovenox 30 mg daily, oxycodone with Tylenol 5/325 one tab every 6 hours p.r.n., Protonix 40 mg daily, Tylenol p.r.n. basis, Xanax 0.5 mg p.o. twice a day p.r.n., Xopenex inhaled every 6 hours. IMPRESSION AND PLAN: Large right pleural effusion, status post thoracentesis, has a pneumothorax requiring chest tube. There may be component of chronic lung disease, steroid-induced diabetes, degenerative joint disease. Presently, chest tube is not draining much. We will wait for surgical team's opinion. Either catheter is black with a bloody secretion or if too small to clear the secretion, may need to put a bigger size tube. Also, same time waiting for cytology report on pleural fluid before making further decision including possible VATS. For now she is off steroids. Continue bronchodilator. Continue inhale bronchodilator. Gastric prophylaxis. Sequential compression device to lower extremity. Follow up chest x-ray in the morning. Thank you and we will follow with you. Ben Garcia MD [facility] # [id number]
[2017-08-30] MEDS: Levalbuterol 1.25 MG/3 ML Inhal Soln UD IH SCH ×4 (01:33→19:59)
[2017-08-30] MEDS: Pantoprazole 40 mg EC Tab PO SCH (05:42)
[2017-08-30 07:39] LABS: BASO # 0.03 K/mm3 (0.0-2.0); BASO % 0.2 % (0.0-3.0); EOS # 0.2 (0.0-0.7); EOS % 1.5 % (1.5-5.0); GRAN # 11.85 (1.4-6.5); GRAN % 78.2 % (50.0-68.0); HEMOGLOBIN 12.8 g/dL (12.0-16.0); LYMPH % 13.4 % (22.0-35.0); MEAN CELL VOLUME 87.1 fl (80.0-105.0); MEAN CORPUSCULAR HEMOGLOBIN 28.4 pg (25.0-35.0); MEAN CORPUSCULAR HGB CONC 32.7 g/dl (31.0-37.0); MEAN PLATELET VOLUME 10.1 fl (7.0-11.0); MONO % 6.7 % (1.0-6.0); RBC 4.5 10^6/uL (3.5-6.1); RED CELL DISTRIBUTION WIDTH 12.9 % (11.5-14.5); WHITE BLOOD COUNT 15.2 10^3/ul (4.5-11.0)
[2017-08-30 07:47] LABS: BLOOD UREA NITROGEN 13 mg/dL (7-21); CALCIUM 8.7 mg/dL (8.4-10.5); GFR AFRICAN-AMERICAN > 60; GFR NON-AFRICAN AMERICAN > 60
--- NOTE | 2017-08-30 08:01 | CP.PCM.PCO ---
Physician Communication Note - Physician Communication Note Physician Communication Note: Chest tube kink fixed(pulled back)/Await labs-Xray
[2017-08-30] MEDS: Lidocaine 5% Patch TD SCH (09:11)
[2017-08-30] MEDS: Enoxaparin 30 mg Syringe SC SCH (09:11)
[2017-08-30] MEDS: Venlafaxine 75 mg ER Cap PO SCH (09:11)
--- NOTE | 2017-08-30 10:04 | RAD ---
HISTORY: R pneumothorax S/P pigtail chest tube COMPARISON: No prior. FINDINGS: LUNGS: Right-sided infiltrate adjacent pleural effusion PLEURA: Moderate size right pleural effusion. Chest tube remains in place CARDIOVASCULAR: Normal. OSSEOUS STRUCTURES: No significant abnormalities. VISUALIZED UPPER ABDOMEN: Normal. OTHER FINDINGS: None. IMPRESSION: Moderate size right pleural effusion. Chest tube remains in place
--- NOTE | 2017-08-30 12:04 | CP.PCM.PN ---
Subjective - Date & Time of Evaluation Date of Evaluation: 08/30/17 Time of Evaluation: 08:00 - Subjective Subjective: Surgery: Dr. Patino Pt seen and examined. No acute overnight events. States she feels better and doesn't have any complaints. Denies any respiratory problems. Denies fevers/ chills. Objective - Vital Signs/Intake and Output Vital Signs (last 24 hours): Temp Pulse Resp BP Pulse Ox 99.1 F 109 H 19 122/67 95 08/30/17 08:11 08/30/17 10:00 08/30/17 08:11 08/30/17 08:11 08/30/17 08:11 Intake and Output: 08/30/17 08/30/17 06:59 18:59 Output Total 25 Balance -25 - Medications Medications: Current Medications Acetaminophen (Tylenol 325mg Tab) 650 mg PO Q6H PRN PRN Reason: Fever >100.4 F Alprazolam (Xanax) 0.5 mg PO BID PRN; Protocol PRN Reason: Anxiety Last Admin: 08/30/17 10:04 Dose: 0.5 mg Docusate Sodium (Colace) 200 mg PO DAILY [facility] Last Admin: 08/30/17 09:11 Dose: 200 mg Doxycycline Hyclate (Doryx) 100 mg PO Q12 [facility] PRN Reason: Protocol Stop: 09/02/17 22:01 Last Admin: 08/30/17 09:11 Dose: 100 mg Enoxaparin Sodium (Lovenox) 30 mg SC DAILY [facility] PRN Reason: Protocol Last Admin: 08/30/17 09:11 Dose: 30 mg Levalbuterol HCl (Xopenex) 1.25 mg IH [id number] [facility] Last Admin: 08/30/17 07:34 Dose: 1.25 mg Lidocaine (Lidoderm) 1 ea TD DAILY [facility] Last Admin: 08/30/17 09:11 Dose: 1 ea Oxycodone/Acetaminophen (Percocet 5/325 Mg Tab) 1 tab PO Q6H PRN PRN Reason: Pain, moderate (4-7) Stop: 08/31/17 22:12 Last Admin: 08/29/17 23:37 Dose: 1 tab Pantoprazole Sodium (Protonix Ec Tab) 40 mg PO 0630 [facility] Last Admin: 08/30/17 05:42 Dose: 40 mg Venlafaxine HCl (Effexor Xr) 150 mg PO DAILY [facility] Last Admin: 08/30/17 09:11 Dose: 150 mg - Labs Labs: 08/30/17 07:00 08/30/17 07:00 PT 13.4 SECONDS (9.4-12.5) H 08/26/17 09:48 INR 1.16 (0.93-1.08) H 08/26/17 09:48 APTT 25.9 Seconds (25.1-36.5) 08/26/17 09:48 - Constitutional Appears: Well, No Acute Distress - Eye Exam Eye Exam: Normal appearance - ENT Exam ENT Exam: Mucous Membranes Moist - Respiratory Exam Respiratory Exam: NORMAL BREATHING PATTERN Additional comments: chest tube in place; with 200cc of serous output/24hrs on suction - Cardiovascular Exam Cardiovascular Exam: RRR - GI/Abdominal Exam GI & Abdominal Exam: Soft. absent: Tenderness - Neurological Exam Neurological Exam: Alert, Awake, Oriented x3 - Skin Skin Exam: Dry, Intact, Warm Assessment and Plan - Assessment and Plan (Free Text) Assessment: 61F with recurrent R pleural effusion s/p pigtail catheter placement Plan: - will remove pigtail catheter today since it continues to be kinked after review of x-ray - will f/u cytology and cultures to further establish a diagnosis and reason for pt's recurrent pleural effusion - d/w Sukumar Pablo, PGY-3
[2017-08-30] MEDS: Oxycodone/Acetaminophen 5/325 mg Tab PO PRN ×2 (15:01→21:31)
--- NOTE | 2017-08-30 15:27 | PN ---
DATE: 08/30/2017 SUBJECTIVE: The patient is a 61 years old seen and examined, seems to be comfortable. No shortness of breath, minimal cough, still have chest tube in the right upper chest. PHYSICAL EXAMINATION: VITAL SIGNS: She has a temperature 99.1, pulse 95, respiration 19, blood pressure 122/67. LUNGS: Breath sounds are decreased on the right side more than the left. No rhonchi. HEART: S1 and S2 audible. ABDOMEN: Soft, nontender. No rebound. No guarding. NEUROLOGICAL: She is awake, alert, oriented, communicative. EXTREMITIES: Bilateral leg, no edema. LABORATORY DATA: WBC 15.2, hemoglobin 12.8, hematocrit 39.2, platelets of 359. Chemistry: Sodium 140, potassium 3.8, chloride 101, CO2 30, BUN 13, creatinine 0.7. Blood sugar of 96. HIV test is negative. X-ray of the chest shows reaccumulation of the right chest fluid, probably chest tube seems to be kinked, that was fixed. ASSESSMENT: 1. Pleural effusion, etiology unknown, awaiting cytology. 2. Active smoker. 3. Chronic obstructive pulmonary disease. 4. Anxiety disorder. 5. Leukocytosis, improving. Echocardiogram done on 08/25/2017 shows left ventricle is normal, normal wall thickness and function, ejection fraction is within normal range, tricuspid regurgitation with mild pulmonary hypertension and large pleural effusion. PLAN: Awaiting cytology. We will talk to Dr. Cain about the plan to remove chest tube, but eventually the patient will need VAT. It might be pleural disease. We will get opinion from Dr. Cabrales. Might benefit from MRI of the chest. Allows Dr. Cabrales to evaluate her to rule out any underlying malignancy. Either we need to do MRI, PET scan or VAT with pleural biopsy. We will discuss with other consultants. Follow up the patient in a.m. Johan Santacruz MD
--- NOTE | 2017-08-30 17:18 | RAD ---
HISTORY: s/p CT removal COMPARISON: Multiple serial examinations preceding the most recent study: August 30, 2017. Time of the most recent examination: 09:01. FINDINGS: LUNGS: Persistent, stable right lower lobe right middle lobe infiltrates. PLEURA: Stable right pleural effusion following chest tube removal. No pneumothorax CARDIOVASCULAR: Normal. OSSEOUS STRUCTURES: No significant abnormalities. VISUALIZED UPPER ABDOMEN: Normal. OTHER FINDINGS: None. IMPRESSION: Status post chest tube removal. No significant interval change compared to the prior examination(s).
--- NOTE | 2017-08-30 19:39 | CP.PCM.PN ---
Subjective - Date & Time of Evaluation Date of Evaluation: 08/30/17 Time of Evaluation: 15:15 - Subjective Subjective: Breathing better, no fevers, no cough, no diarrhea. Objective - Vital Signs/Intake and Output Vital Signs (last 24 hours): Temp Pulse Resp BP Pulse Ox 99.1 F 95 H 19 122/67 95 08/30/17 08:11 08/30/17 08:11 08/30/17 08:11 08/30/17 08:11 08/30/17 08:11 Intake and Output: 08/30/17 08/30/17 06:59 18:59 Output Total 25 Balance -25 - Medications Medications: Current Medications Acetaminophen (Tylenol 325mg Tab) 650 mg PO Q6H PRN PRN Reason: Fever >100.4 F Alprazolam (Xanax) 0.5 mg PO BID PRN; Protocol PRN Reason: Anxiety Last Admin: 08/29/17 22:04 Dose: 0.5 mg Docusate Sodium (Colace) 200 mg PO DAILY [facility] Last Admin: 08/29/17 11:01 Dose: 200 mg Doxycycline Hyclate (Doryx) 100 mg PO Q12 [facility] PRN Reason: Protocol Stop: 09/02/17 22:01 Last Admin: 08/29/17 21:51 Dose: 100 mg Enoxaparin Sodium (Lovenox) 30 mg SC DAILY [facility] PRN Reason: Protocol Last Admin: 08/29/17 11:02 Dose: 30 mg Levalbuterol HCl (Xopenex) 1.25 mg IH [id number] [facility] Last Admin: 08/30/17 07:34 Dose: 1.25 mg Lidocaine (Lidoderm) 1 ea TD DAILY [facility] Last Admin: 08/29/17 11:02 Dose: 1 ea Oxycodone/Acetaminophen (Percocet 5/325 Mg Tab) 1 tab PO Q6H PRN PRN Reason: Pain, moderate (4-7) Stop: 08/31/17 22:12 Last Admin: 08/29/17 23:37 Dose: 1 tab Pantoprazole Sodium (Protonix Ec Tab) 40 mg PO 0630 [facility] Last Admin: 08/30/17 05:42 Dose: 40 mg Venlafaxine HCl (Effexor Xr) 150 mg PO DAILY [facility] Last Admin: 08/29/17 11:01 Dose: 150 mg - Labs Labs: 08/30/17 07:00 08/30/17 07:00 PT 13.4 SECONDS (9.4-12.5) H 08/26/17 09:48 INR 1.16 (0.93-1.08) H 08/26/17 09:48 APTT 25.9 Seconds (25.1-36.5) 08/26/17 09:48 - Constitutional Appears: Non-toxic, Chronically Ill - Head Exam Head Exam: NORMAL INSPECTION - ENT Exam ENT Exam: Mucous Membranes Moist - Neck Exam Neck Exam: absent: Meningismus - Respiratory Exam Respiratory Exam: Decreased Breath Sounds - Cardiovascular Exam Cardiovascular Exam: +S1, +S2 - GI/Abdominal Exam GI & Abdominal Exam: Soft. absent: Tenderness Assessment and Plan - Assessment and Plan (Free Text) Plan: Assessment Systemic Inflammatory response syndrome due to respiratory distress from loculated pleural effusion, R/o malignant pleural effusion S/P thoracentesis COPD depression S/P hysterectomy osteoarthritis Plan continue Doxycycline for another 4-6 more days - follow up pleural fluid cytology
--- NOTE | 2017-08-30 23:17 | PN ---
DATE: 08/30/2017 SUBJECTIVE: She is comfortable in bed, in no acute distress. Right-sided chest pain resolved. Today, chest tube was removed. It was draining serosanguineous fluid. There is a concern of pleural malignancy. Cytology form pleural fluid is pending. No fever. No cough with expectoration. REVIEW OF SYSTEMS: As per HPI. Rest of the 12-point review of systems reviewed is negative. LABORATORY DATA: White count 15.2, hemoglobin 12.8, hematocrit 39.2, platelet count 359. Sodium 140, potassium 3.8, creatinine 0.7. HIV is nonreactive. MEDICATIONS: Tylenol 650 every 6 hours p.r.n., Xanax 0.5 mg p.o. b.i.d., Colace 200 mg daily, doxycycline 100 every 12 hours, Lovenox 30 daily, Xopenex p.r.n., Lidoderm, Protonix, Effexor. ASSESSMENT: 1. Hemorrhagic right pleural effusion. 2. Possibility of pleural malignancy, mesothelioma suspicion is very high. 3. Chronic obstructive pulmonary disease. 4. Anxiety disorder. 5. Leukocytosis. PLAN: She completed IV antibiotics, currently on doxycycline. Pleural fluid cytology is pending. I will consider MRI of the right side of the chest to rule out pleural lesion, suspicious for mesothelioma. She might need VATS and pleural biopsy to rule out pleural malignancy. I obtained a detailed history about asbestos. She indicated that at her work, there was mold in the basement, but she is not aware of exposure to asbestos. Leukocytosis is improving. COPD is under control. . Discussed all of the above with the patient. We will continue to follow. We will discuss with pathologist about cytology results. Thank you Dr. Santacruz for allowing us to participate in Ms. Lucia's care. Lizbeth Cabrales MD [facility]
--- NOTE | 2017-08-31 00:20 | PN ---
DATE: 08/30/2017 PULMONARY PROGRESS NOTE REFERRING PHYSICIAN: Johan Santacruz MD. SUBJECTIVE: She is lying in the bed, head at 45 degrees. Has a right-sided chest tube, not much draining; but clinically, she feels better. No nausea. No vomiting. No diarrhea. No leg pain or leg swelling. OBJECTIVE: GENERAL: In no acute distress. VITAL SIGNS: Temp is 98, heart rate is 99, respiratory rate is 20, blood pressure 120/76, pulse ox 95% on 2 L nasal cannula. HEENT: Moist mucous membrane. No ulcer or thrush noted. NECK: Supple. No JVD. LUNGS: Have decreased breath sound in the right base. Has a right-sided chest tube. HEART: S1 and S2. ABDOMEN: Soft, nontender. No organomegaly. EXTREMITIES: No edema. NEUROLOGIC: Awake, alert. Follows simple command. MEDICATIONS: She is on Colace 200 mg daily, doxycycline 100 mg twice a day, Effexor 150 mg daily, lidocaine patch at affected area, Lovenox 30 mg subcu daily, Percocet 5/325 one tab every 6 hours p.r.n., Protonix 40 mg daily, Tylenol p.r.n. basis, Xanax 0.5 mg twice a day p.r.n. and Xopenex inhaled every 6 hours. LABORATORY DATA: Shows hemoglobin 12.8, hematocrit 39.2, WBC 15,000, platelet count is 359. Sodium 140, potassium , chloride 101, bicarbonate 30, BUN 13, creatinine 0.7, glucose is 96, calcium is 8.7. Microbiology: Blood culture and urine culture, there is no growth. The cytology report on pleural effusion is still pending. Chest x-ray, which is done this afternoon shows the right-sided chest tube been removed. Otherwise, no changes; has still pleural effusion. IMPRESSION AND PLAN: Recurrent bloody effusion, chronic obstructive lung disease. Chest tube was removed because of nonfunctioning chest tube. Patient clinically is stable, awaiting for cytology reports on pleural fluid, may need VATS. We will make decision once the cytopath is back. Thank you and we will follow with you. Ben Garcia MD
[2017-08-31] MEDS: Levalbuterol 1.25 MG/3 ML Inhal Soln UD IH SCH ×4 (01:07→21:15)
[2017-08-31] MEDS: Pantoprazole 40 mg EC Tab PO SCH (05:41)
--- NOTE | 2017-08-31 08:32 | CP.PCM.PN ---
Subjective - Date & Time of Evaluation Date of Evaluation: 08/31/17 Time of Evaluation: 07:00 - Subjective Subjective: PGY-1 surgery progress note for Dr. Patino Patient seen and examined at bedside this morning. Patient has no complaints at this time. She slept well on nasal cannula. Objective - Vital Signs/Intake and Output Vital Signs (last 24 hours): Temp Pulse Resp BP Pulse Ox 99.1 F 93 H 18 134/81 97 08/31/17 08:09 08/31/17 08:09 08/31/17 08:09 08/31/17 08:09 08/31/17 08:09 Intake and Output: 08/31/17 08/31/17 06:59 18:59 Intake Total 700 Balance 700 - Medications Medications: Current Medications Acetaminophen (Tylenol 325mg Tab) 650 mg PO Q6H PRN PRN Reason: Fever >100.4 F Alprazolam (Xanax) 0.5 mg PO BID PRN; Protocol PRN Reason: Anxiety Last Admin: 08/30/17 21:30 Dose: 0.5 mg Docusate Sodium (Colace) 200 mg PO DAILY [facility] Last Admin: 08/30/17 09:11 Dose: 200 mg Doxycycline Hyclate (Doryx) 100 mg PO Q12 [facility] PRN Reason: Protocol Stop: 09/02/17 22:01 Last Admin: 08/30/17 21:31 Dose: 100 mg Enoxaparin Sodium (Lovenox) 30 mg SC DAILY [facility] PRN Reason: Protocol Last Admin: 08/30/17 09:11 Dose: 30 mg Levalbuterol HCl (Xopenex) 1.25 mg IH [id number] [facility] Last Admin: 08/31/17 07:52 Dose: 1.25 mg Lidocaine (Lidoderm) 1 ea TD DAILY [facility] Last Admin: 08/30/17 09:11 Dose: 1 ea Oxycodone/Acetaminophen (Percocet 5/325 Mg Tab) 1 tab PO Q6H PRN PRN Reason: Pain, moderate (4-7) Stop: 08/31/17 22:12 Last Admin: 08/30/17 21:31 Dose: 1 tab Pantoprazole Sodium (Protonix Ec Tab) 40 mg PO 0630 [facility] Last Admin: 08/31/17 05:41 Dose: 40 mg Venlafaxine HCl (Effexor Xr) 150 mg PO DAILY [facility] Last Admin: 08/30/17 09:11 Dose: 150 mg - Labs Labs: 08/30/17 07:00 08/30/17 07:00 PT 13.4 SECONDS (9.4-12.5) H 08/26/17 09:48 INR 1.16 (0.93-1.08) H 08/26/17 09:48 APTT 25.9 Seconds (25.1-36.5) 08/26/17 09:48 - Constitutional Appears: No Acute Distress - Head Exam Head Exam: ATRAUMATIC, NORMOCEPHALIC - Eye Exam Eye Exam: EOMI, Normal appearance - ENT Exam ENT Exam: Mucous Membranes Moist - Respiratory Exam Respiratory Exam: NORMAL BREATHING PATTERN. absent: Accessory Muscle Use, Respiratory Distress - Cardiovascular Exam Cardiovascular Exam: +S1, +S2 - GI/Abdominal Exam GI & Abdominal Exam: Soft, Normal Bowel Sounds. absent: Tenderness - Neurological Exam Neurological Exam: Alert, Awake, Oriented x3 - Psychiatric Exam Psychiatric exam: Normal Affect, Normal Mood - Skin Skin Exam: Dry, Warm Assessment and Plan - Assessment and Plan (Free Text) Assessment: This is a 61 year old female with recurrent right pleural effusion s/p pigtail catheter placement. The catheter was removed on 08/30/17. Plan: Recurrent Right Pleural Effusion Pigtail catheter removed on 08/30/17 Follow up cytology and cultures to establish diagnosis and cause for the recurrent pleural effusions Discussed with Dr. Sukumar Erazo PGY-1
[2017-08-31] MEDS: Enoxaparin 30 mg Syringe SC SCH (09:40)
[2017-08-31] MEDS: Venlafaxine 75 mg ER Cap PO SCH (09:40)
[2017-08-31] MEDS: Lidocaine 5% Patch TD SCH (09:40)
--- NOTE | 2017-08-31 13:01 | PN ---
DATE: 08/31/2017 SUBJECTIVE: The patient is 61 years old, seen and examined, doing well. She states shortness of breath is much better. Had chest tube removed and feels comfortable. PHYSICAL EXAMINATION: VITAL SIGNS: She is afebrile, pulse 93, respiration 18, blood pressure 134/81. LUNGS: Bilateral good airflow. No rhonchi or crackle. HEART: S1 and S2 audible. ABDOMEN: Soft. Nontender. No rebound. No guarding. NEUROLOGIC: She is awake, alert, oriented, able to communicate. LABORATORY EXAM: Her chest x-ray after removing tube shows no significant interval change. ASSESSMENT: 1. Right pleural effusion, status post paracentesis. 2. Active smoker. 3. History of depression. 4. Leukocytosis, improving. 5. Chronic obstructive pulmonary disease. 6. Anxiety disorder. PLAN: Dr. Cabrales's input noted and appreciated. We will talk to her if we should do MRI while she is in the hospital or should wait until certain amount of time. Her concern is pleural malignancy. For that, she needs VAT, but it is hard to get hold of thoracic surgeon for now. Still awaiting for cytology report. Once I discuss with other consultants, we will make discharge plan. Johan Santacruz MD
--- NOTE | 2017-08-31 14:56 | CP.PCM.PN ---
Subjective - Date & Time of Evaluation Date of Evaluation: 08/31/17 Time of Evaluation: 11:15 - Subjective Subjective: Breathing better, no fevers. No cough currently. Objective - Vital Signs/Intake and Output Vital Signs (last 24 hours): Temp Pulse Resp BP Pulse Ox 99.1 F 93 H 18 134/81 97 08/31/17 08:09 08/31/17 08:09 08/31/17 08:09 08/31/17 08:09 08/31/17 08:09 Intake and Output: 08/31/17 08/31/17 06:59 18:59 Intake Total 700 Balance 700 - Medications Medications: Current Medications Acetaminophen (Tylenol 325mg Tab) 650 mg PO Q6H PRN PRN Reason: Fever >100.4 F Alprazolam (Xanax) 0.5 mg PO BID PRN; Protocol PRN Reason: Anxiety Last Admin: 08/31/17 10:21 Dose: 0.5 mg Docusate Sodium (Colace) 200 mg PO DAILY [facility] Last Admin: 08/31/17 09:40 Dose: 200 mg Doxycycline Hyclate (Doryx) 100 mg PO Q12 SILVIA PRN Reason: Protocol Stop: 09/02/17 22:01 Last Admin: 08/31/17 09:40 Dose: 100 mg Enoxaparin Sodium (Lovenox) 30 mg SC DAILY [facility] PRN Reason: Protocol Last Admin: 08/31/17 09:40 Dose: 30 mg Levalbuterol HCl (Xopenex) 1.25 mg IH [id number] [facility] Last Admin: 08/31/17 07:52 Dose: 1.25 mg Lidocaine (Lidoderm) 1 ea TD DAILY [facility] Last Admin: 08/31/17 09:40 Dose: 1 ea Oxycodone/Acetaminophen (Percocet 5/325 Mg Tab) 1 tab PO Q6H PRN PRN Reason: Pain, moderate (4-7) Stop: 08/31/17 22:12 Last Admin: 08/30/17 21:31 Dose: 1 tab Pantoprazole Sodium (Protonix Ec Tab) 40 mg PO 0630 [facility] Last Admin: 08/31/17 05:41 Dose: 40 mg Venlafaxine HCl (Effexor Xr) 150 mg PO DAILY [facility] Last Admin: 08/31/17 09:40 Dose: 150 mg - Labs Labs: 08/30/17 07:00 08/30/17 07:00 PT 13.4 SECONDS (9.4-12.5) H 08/26/17 09:48 INR 1.16 (0.93-1.08) H 08/26/17 09:48 APTT 25.9 Seconds (25.1-36.5) 08/26/17 09:48 - Constitutional Appears: Non-toxic, Chronically Ill - Head Exam Head Exam: NORMAL INSPECTION - ENT Exam ENT Exam: Mucous Membranes Moist - Neck Exam Neck Exam: absent: Meningismus - Respiratory Exam Respiratory Exam: Decreased Breath Sounds - Cardiovascular Exam Cardiovascular Exam: +S1, +S2 - GI/Abdominal Exam GI & Abdominal Exam: Soft. absent: Tenderness Assessment and Plan - Assessment and Plan (Free Text) Plan: Assessment S/P systemic Inflammatory response syndrome due to respiratory distress from loculated pleural effusion, R/O malignant pleural effusion S/P thoracentesis COPD depression S/P hysterectomy osteoarthritis Plan continue Doxycycline for another 3-5 more days - follow up pleural fluid cytology
[2017-08-31 16:56] VITALS: BP 109/63; RESP 19; TEMP 98.5; O2SAT 98
--- NOTE | 2017-08-31 23:57 | PN ---
DATE: 08/31/2017 PULMONARY PROGRESS NOTE REFERRING PHYSICIAN: Johan Santacruz MD. SUBJECTIVE: She is sitting at the side of the bed, having dinner, daughter is at bedside. Night was unremarkable. Fever is okay. No headache, no rhinitis. No nausea, no vomiting, no diarrhea. No leg pain or leg swelling. OBJECTIVE: GENERAL: In no acute distress. VITAL SIGNS: Temperature is 98, heart rate is 104, respiratory rate is 20, blood pressure 109/63, pulse ox 98% on room air. HEENT: Moist mucous membrane. Crowded airway. Mallampati score is 4. NECK: Supple. No JVD. LUNGS: Have one-third of decreased breath sounds on the right lung. HEART: S1 and S2. ABDOMEN: Soft, nontender. No organomegaly. EXTREMITIES: No edema. NEUROLOGIC: Awake, alert, and follows simple command. MEDICATIONS: She is on Colace 200 mg daily, doxycycline 100 mg twice a day, Effexor XR 150 mg daily, lidocaine patch daily, Protonix 40 mg daily, Tylenol p.r.n., Xanax 0.5 mg twice a day, Xopenex inhaler every 6 hours. LABORATORY DATA: Shows hemoglobin 12.8 yesterday. Microbiology: Blood culture, sputum culture, fluid is unremarkable. Cytology/pathology report of pleural effusion is still pending. IMPRESSION AND PLAN: Hemorrhagic right pleural effusion, which is recurrent, status post thoracentesis and status post chest tube, still have one-third of seems like a bloody effusion. Chest tube was removed because of nonfunctioning of the tube. Awaiting for cytopathology of the pleural fluid for further decision. For now, continue bronchodilator, supplement oxygen, incentive spirometer, gastric prophylaxis, deep venous thrombosis prophylaxis. Thank you and we will follow with you. Ben Garcia MD
[2017-09-01] MEDS: Levalbuterol 1.25 MG/3 ML Inhal Soln UD IH SCH ×2 (02:40→07:23)
[2017-09-01 06:41] VITALS: PULSE 95
[2017-09-01] MEDS: Pantoprazole 40 mg EC Tab PO SCH (06:41)
[2017-09-01] MEDS: Venlafaxine 75 mg ER Cap PO SCH (09:25)
[2017-09-01] MEDS: Lidocaine 5% Patch TD SCH (09:26)
--- NOTE | 2017-09-01 11:39 | RAD ---
HISTORY: re-eval pleural effusion COMPARISON: 08/30/2017 FINDINGS: LUNGS: Stable consolidative changes primarily affecting right lower lobe. PLEURA: Stable right pleural effusion. CARDIOVASCULAR: No radiographic findings to suggest acute or significant cardiovascular disease. OSSEOUS STRUCTURES: No significant abnormalities. VISUALIZED UPPER ABDOMEN: Normal. OTHER FINDINGS: None. IMPRESSION: Stable findings the right agustín thorax including consolidative change and right pleural effusion. No pneumothorax identified.
--- NOTE | 2017-09-01 12:03 | CP.PCM.PN ---
Subjective - Date & Time of Evaluation Date of Evaluation: 09/01/17 Time of Evaluation: 10:10 - Subjective Subjective: Patient seen and examined at bedside with Dr. Patino, patient denies any SOB, chest pain, but has productive cough. Discussed cytology findings and follow up care with patient and daughter Objective - Vital Signs/Intake and Output Vital Signs (last 24 hours): Temp Pulse Resp BP Pulse Ox 98.5 F 95 H 19 109/63 98 08/31/17 16:55 09/01/17 10:00 08/31/17 16:55 08/31/17 16:55 08/31/17 16:55 Intake and Output: 09/01/17 09/01/17 06:59 18:59 Intake Total 860 400 Balance 860 400 - Medications Medications: Current Medications Acetaminophen (Tylenol 325mg Tab) 650 mg PO Q6H PRN PRN Reason: Fever >100.4 F Alprazolam (Xanax) 0.5 mg PO BID PRN; Protocol PRN Reason: Anxiety Last Admin: 09/01/17 09:25 Dose: 0.5 mg Docusate Sodium (Colace) 200 mg PO DAILY [facility] Last Admin: 09/01/17 09:25 Dose: 200 mg Doxycycline Hyclate (Doryx) 100 mg PO Q12 SILVIA PRN Reason: Protocol Stop: 09/02/17 22:01 Last Admin: 09/01/17 09:25 Dose: 100 mg Levalbuterol HCl (Xopenex) 1.25 mg IH [id number] [facility] Last Admin: 09/01/17 07:23 Dose: 1.25 mg Lidocaine (Lidoderm) 1 ea TD DAILY [facility] Last Admin: 09/01/17 09:26 Dose: Not Given Pantoprazole Sodium (Protonix Ec Tab) 40 mg PO 0630 [facility] Last Admin: 09/01/17 06:41 Dose: 40 mg Venlafaxine HCl (Effexor Xr) 150 mg PO DAILY [facility] Last Admin: 09/01/17 09:25 Dose: 150 mg - Labs Labs: 08/30/17 07:00 08/30/17 07:00 PT 13.4 SECONDS (9.4-12.5) H 08/26/17 09:48 INR 1.16 (0.93-1.08) H 08/26/17 09:48 APTT 25.9 Seconds (25.1-36.5) 08/26/17 09:48 - Constitutional Appears: Well, Non-toxic, No Acute Distress - Head Exam Head Exam: ATRAUMATIC, NORMOCEPHALIC - Eye Exam Eye Exam: Normal appearance. absent: Conjunctival injection, Scleral icterus - ENT Exam ENT Exam: Mucous Membranes Moist, Normal Oropharynx - Respiratory Exam Respiratory Exam: NORMAL BREATHING PATTERN. absent: Accessory Muscle Use, Respiratory Distress Additional comments: dressing over the prior chest tube site in belle superior anterior axillary light on right chest c/d/i - GI/Abdominal Exam GI & Abdominal Exam: absent: Distended - Neurological Exam Neurological Exam: Alert, Awake, Oriented x3 - Psychiatric Exam Psychiatric exam: Normal Affect, Normal Mood - Skin Skin Exam: Dry, Intact, Normal Color, Warm Assessment and Plan - Assessment and Plan (Free Text) Assessment: 61F with right pleural effusion and resolved pneumothorax after pigtail chest tube insertion and D/C Plan: F/u official cytology report Patient is clear for discharge from a surgical standpoint Follow up with DR. Patino as needed for any further complications Follow up with Dr. Cabrales for oncology Return to hospital immediately for shortness of breath, chest pain, or any other symptoms Seen and examined with Dr. Sukumar Cuellar, PGY2
--- NOTE | 2017-09-01 13:54 | PN ---
DATE: 09/01/2017 PULMONARY PROGRESS NOTE REFERRING PHYSICIAN: Johan Santacruz MD. SUBJECTIVE: She is sitting at the side of the bed, being discharged home, to do further workup as outpatient. She was told she has malignant cells in the pleural effusion. Daughter is at bedside. Breathing uriarte, she is okay. No nausea, no vomiting, no diarrhea. No leg pain or leg swelling. OBJECTIVE: GENERAL: In no acute distress. VITAL SIGNS: Temperature is 98, heart rate is 95, respiratory rate is 20, blood pressure 134/81, pulse ox 97% on room air. HEENT: Moist mucous membrane. Crowded airway. NECK: Supple. No JVD. LUNGS: Had one-third of decreased breath sounds on the right lung. HEART: S1 and S2. ABDOMEN: Soft, nontender. No organomegaly. EXTREMITIES: No edema. NEUROLOGIC: Awake, alert, follows simple commands. MEDICATIONS: Reviewed, no new changes in medications reported since yesterday. LABORATORY DATA: Reviewed and noted. No new lab is available since yesterday. Microbiology, sputum is negative. Pleural effusion, there is no growth. Blood cultures been negative. Chest x-ray done today, still shows one-third up pleural effusion on the right side, otherwise, no change. IMPRESSION AND PLAN: Hemorrhagic right pleural effusion, requiring thoracentesis and have pneumothorax, status post chest tube, still have one-third up hemorrhagic effusion. Chronic obstructive lung disease. I do not have any cytology report, but according to the patient, she was told by another physician, she has malignant cells in the pleural fluid. She is being discharged home to have further workup and follow up with oncologist as outpatient. She will need pulmonary function tests to evaluate the lung function. Continue bronchodilator. Urged her to stop smoking. Thank you and we will follow with you as outpatient. Ben Garcia MD
--- NOTE | 2017-09-02 08:34 | DS ---
HISTORY OF PRESENT ILLNESS: The patient is a 61-year-old who was admitted with increasing shortness of breath. X-ray showed large pleural effusion. The patient underwent thoracentesis, had 3 L fluid removed after that. Next day, she was found to have pneumothorax, had chest tube placed. Cytology of the tap is still pending. The patient is clinically stable, doing well, ambulatory without getting short of breath. PHYSICAL EXAMINATION: GENERAL: She is awake, alert, oriented, communicative. VITAL SIGNS: She is afebrile, pulse 95, respirations 18, blood pressure 109/63. LUNGS: Bilateral fair airflow; however, she has decreased breath sound on the right mid and lower lung region. HEART: S1 and S2 audible. ABDOMEN: Soft. Nontender. No rebound. No guarding. NEUROLOGICAL: The patient is awake, alert, oriented, communicative. LABORATORY EXAM: Her x-ray chest that was done today shows right hemithorax including consolidative change in the right pleural effusion. No pneumothorax identified. ASSESSMENT: 1. Status post right pleural effusion. Etiology is still unclear. We have to rule out underlying malignancy. Awaiting cytology. 2. Anxiety disorder. 3. Depression. PLAN: The patient is being discharged home today. She is advised to follow up as soon as if she gets short of breath. So she is being discharged home on doxycycline 100 mg twice a day for 3 more days, Xanax as needed. She will follow up with Dr. Cabrales next Wednesday. By that time, we will have the cytology. Johan Santacruz MD
== END 2017-09-01 12:00 | disposition home or self-care (01) | DRG 871 ==
LOC: ED 13:15 → ERH 16:10 → 3RSO 18:12
PROVIDERS: ADMIT Internal Medicine; ATTEND Internal Medicine
PROC: 0W993ZZ Drainage of Right Pleural Cavity, Percutaneous Approach (ICD-10-PCS; 2017-08-25)
PROC: BB4BZZZ Ultrasonography of Pleura (ICD-10-PCS; 2017-08-25)
PROC: 0W9930Z Drainage of Right Pleural Cavity with Drainage Device, Percutaneous Approach (ICD-10-PCS; principal; 2017-08-26)
DX: A41.9 Sepsis, unspecified organism (principal); J18.9 Pneumonia, unspecified organism; C34.90 Malignant neoplasm of unspecified part of unspecified bronchus or lung; C78.2 Secondary malignant neoplasm of pleura; J44.0 Chronic obstructive pulmonary disease with (acute) lower respiratory infection; J93.82 Other air leak; J93.9 Pneumothorax, unspecified; F32.89 Other specified depressive episodes; F41.9 Anxiety disorder, unspecified; F17.210 Nicotine dependence, cigarettes, uncomplicated; I07.1 Rheumatic tricuspid insufficiency; I27.20 Pulmonary hypertension, unspecified; K21.9 Gastro-esophageal reflux disease without esophagitis; K27.9 Peptic ulcer, site unspecified, unspecified as acute or chronic, without hemorrhage or perforation; M15.9 Polyosteoarthritis, unspecified; Y95 Nosocomial condition; Z90.710 Acquired absence of both cervix and uterus; Z90.49 Acquired absence of other specified parts of digestive tract; Z91.19 Patient's noncompliance with other medical treatment and regimen; R06.03 Acute respiratory distress; R40.2412 Glasgow coma scale score 13-15, at arrival to emergency department

== ENCOUNTER 2018-05-18 07:40 | Emergency (ER) | payer BC ==
[2018-05-18 07:41] VITALS: BMI 26.5
[2018-05-18 07:53] VITALS: RESP 18
[2018-05-18] MEDS ORDERED: Morphine 4 mg/ml ISec IVP STA ×2 (07:53→09:19)
--- NOTE | 2018-05-18 08:03 | ED PDOC ---
Arrival/HPI - General Chief Complaint: Upper Extremity Problem/Injury Time Seen by Provider: 05/18/18 07:46 Historian: Patient - History of Present Illness Narrative History of Present Illness (Text): 05/18/18 08:03 A 62 year old female, whose past medical history includes stage 4 lung CA, presents to the emergency department complaining of right arm pain s/p injury. Patient reports this morning she was cleaning out litter box, and her rihgt arm accidentally slipped, resulting in hitting her right elbow onto the counter. Immediately afterwards began experiencing severe pain. Patient denies any head trauma, any other injuries, or any other complaints at this time. PMD: Dr. Santacruz Past Medical History - Provider Review Nursing Documentation Reviewed: Yes - Infectious Disease Hx of Infectious Diseases: None - Reproductive Menopause: Yes - Cardiac Hx Cardiac Disorders: No - Pulmonary Hx Chronic Obstructive Pulmonary Disease (COPD): Yes Hx Lung Cancer: Yes - Hematological/Oncological Hx Chemotherapy: Yes Other/Comment: lung ca - Musculoskeletal/Rheumatological Hx Falls: No - Gastrointestinal Hx Gastroesophageal Reflux: Yes - Genitourinary/Gynecological Other/Comment: B/L LUNPECTOMY, C-SECTIONX2, GENI - Psychiatric Hx Anxiety: Yes Hx Depression: Yes Hx Panic Disorder: Yes Hx Substance Use: No - Surgical History Hx Section: Yes Hx Cholecystectomy: Yes Hx Mastectomy: Yes (LUMPECTOMY B/L) - Anesthesia Hx Anesthesia: Yes Hx Anesthesia Reactions: No Hx Malignant Hyperthermia: No Family/Social History - Physician Review Nursing Documentation Reviewed: Yes Family/Social History: No Known Family HX Smoking Status: Former Smoker Hx Alcohol Use: No Hx Substance Use: No Allergies/Home Meds Allergies/Adverse Reactions: Allergies No Known Allergies Allergy (Unverified 08/24/17 14:50) Review of Systems - Physician Review All systems were reviewed & negative as marked: Yes - Review of Systems Constitutional: absent: Other (no head trauma) Musculoskeletal: Other (right-arm pain s/p injury.) Physical Exam Vital Signs Reviewed: Yes Vital Signs Temp Pulse Resp BP Pulse Ox 05/18/18 07:50 98.7 F 90 18 91/66 L 97 Temperature: Afebrile Blood Pressure: Normal Pulse: Regular Respiratory Rate: Normal Appearance: Positive for: Well-Appearing, Non-Toxic, Comfortable Pain Distress: None Mental Status: Positive for: Alert and Oriented X 3 - Systems Exam Head: Present: Atraumatic, Normocephalic Pupils: Present: PERRL Extroacular Muscles: Present: EOMI Conjunctiva: Present: Normal Mouth: Present: Moist Mucous Membranes Nose (External): Present: Atraumatic Neck: Present: Normal Range of Motion. No: MIDLINE TENDERNESS Respiratory/Chest: Present: Clear to Auscultation, Good Air Exchange. No: Respiratory Distress, Accessory Muscle Use Cardiovascular: Present: Regular Rate and Rhythm, Normal S1, S2. No: Murmurs Abdomen: No: Tenderness, Distention, Peritoneal Signs Back: Present: Normal Inspection. No: Midline Tenderness Upper Extremity: Present: NORMAL PULSES, Tenderness (right upper arm), Swelling (right upper arm), Deformity. No: Normal ROM (limited ROM due to pain to shoulder and elbow) Lower Extremity: Present: Normal Inspection. No: Edema Neurological: Present: GCS=15, CN II-XII Intact, Speech Normal, Motor Func Grossly Intact (dec strenght right upper arm d/t injury), Normal Sensory Function Skin: Present: Warm, Dry, Normal Color. No: Rashes Psychiatric: Present: Alert, Oriented x 3, Normal Insight, Normal Concentration Medical Decision Making ED Course and Treatment: 05/18/18 08:03 Impression: 62 year old female right arm pain s/p injury. Differential Diagnosis included but are not limited to: Fracture Plan: -- Right Elbow X-Ray -- Right Humerus X-Ray -- Right Shoulder X-Ray -- Morphine -- Labs -- Reassess and disposition Prior Visits: Notes and results from previous visits were reviewed. Patient was last seen here in the emergency department on 08/24/2017 for worsening shortness of breath ad dry cough. Patient was admitted. Progress Notes: 05/18/2018 09:01 Right Elbow X-Ray IMPRESSION: Markedly limited exam is specially regarding the elbow single view only appreciated on this available view all that can be stated is a this placed right mid humeral shaft fracture is present. When patient can cooperate consider repeat right elbow x-ray. Dictator: Sidra Plata MD 05/18/2018 09:46 Right Humerus X-Ray IMPRESSION: Acute appearing right humeral mid shaft fracture. Dictator: Sidra Plata MD 05/18/2018 09:48 Right Shoulder X-Ray FINDINGS: BONES: A complete oblique mid right humeral shaft acute appearing fracture was fractured ends 8 mm. The distal segment is laterally displaced 8 mm from the proximal segment. JOINTS: Mild right shoulder arthrosis suspect. Again limited evaluation of the right elbow joint. SOFT TISSUES: Normal. OTHER FINDINGS: None. IMPRESSION: Acute appearing complete oblique right humeral midshaft fracture with lateral displacement as reference above. Dictator: Sidra Santacruz requested Dr. Marin for consult. Dr. Marin came to the ED to evaluate patient and placed the patient on a right long arm splint. She advised the patient to take Percocet for breakthrough pain and follow up with his office in 1-2days. Patient was comfortable on discharge and will make sure she follow up with her PMD. - Lab Interpretations I have reviewed the lab results: Yes - RAD Interpretation Radiology Orders: 05/18/18 07:53 ELBOW RIGHT 3 VIEWS ROUTINE [RAD] Stat HUMERUS RIGHT [RAD] Stat SHOULDER RIGHT [RAD] Stat - Medication Orders Current Medication Orders: Discontinued Medications Morphine Sulfate (Morphine) 4 mg IVP STAT STA Stop: 05/18/18 07:54 - Scribe Statement The provider has reviewed the documentation as recorded by the Corey Payne Provider Scribe Attestation: All medical record entries made by the Scribe were at my direction and personally dictated by me. I have reviewed the chart and agree that the record accurately reflects my personal performance of the history, physical exam, medical decision making, and the department course for this patient. I have also personally directed, reviewed, and agree with the discharge instructions and disposition. Disposition/Present on Arrival - Present on Arrival Any Indicators Present on Arrival: No History of DVT/PE: No History of Uncontrolled Diabetes: No Urinary Catheter: No History of Decub. Ulcer: No History Surgical Site Infection Following: None - Disposition Have Diagnosis and Disposition been Completed?: Yes Diagnosis: Right humeral fracture Disposition: HOME/ ROUTINE Disposition Time: 10:48 Patient Plan: Discharge Condition: IMPROVED Additional Instructions: JOHNNY REES, thank you for letting us take care of you today. Your provider was Austyn Reed DO and you were treated for Right Arm Pain. The emergency medical care you received today was directed at your acute symptoms. If you were prescribed any medication, please fill it and take as directed. It may take several days for your symptoms to resolve. Return to the Emergency Department if your symptoms worsen, do not improve, or if you have any other problems. Make sure to follow up with Dr. Ramirez as scheduled by him. Please contact your doctor or call one of the physicians/clinics you have been referred to that are listed on the Patient Visit Information form that is included in your discharge packet. Bring any paperwork you were given at discharge with you along with any medications you are taking to your follow up visit. Our treatment cannot replace ongoing medical care by a primary care provider outside of the emergency department. Thank you for allowing the [facility] team to be part of your care today. If you had an X-Ray or CT scan: A Radiologist will review the ED reading if any change in treatment is needed we will contact you. If you had a blood, urine, or wound culture: It will take several days for the results, if any change in treatment is needed we will contact you. If you had an STI test: It will take 48 hours for the results. Please call after 1 week if you have not heard back. Prescriptions: Ibuprofen [Motrin] 600 mg PO Q6 PRN #30 tab PRN Reason: Pain, Moderate (4-7) oxyCODONE/Acetaminophen [Percocet 5/325 mg Tab] 1 ea PO Q6 PRN #20 tab PRN Reason: Pain, Moderate (4-7) Referrals: Johnny Brady DO [Staff Provider] - Follow up with primary Forms: [employer] (Fijian), WORK NOTE
[2018-05-18 08:17] LABS: BASO # 0.01 K/mm3 (0.0-2.0); BASO % 0.1 % (0.0-3.0); EOS # 0.1 (0.0-0.7); EOS % 0.8 % (1.5-5.0); GRAN # 6.49 (1.4-6.5); GRAN % 71.2 % (50.0-68.0); LYMPH # 1.8 (1.2-3.4); LYMPH % 19.3 % (22.0-35.0); MEAN CELL VOLUME 94.1 fl (80.0-105.0); MEAN PLATELET VOLUME 9.9 fl (7.0-11.0); MONO # 0.8 (0.1-0.6); MONO % 8.6 % (1.0-6.0); RBC 3.87 10^6/uL (3.5-6.1); RED CELL DISTRIBUTION WIDTH 14.3 % (11.5-14.5); WHITE BLOOD COUNT 9.1 10^3/uL (4.5-11.0)
[2018-05-18 08:26] LABS: INR 1.25; PARTIAL THROMBOPLASTIN TIME 31.7 Seconds (26.9-38.3); PROTHROMBIN TIME 14.1 SECONDS (9.4-12.5)
[2018-05-18 08:28] LABS: BLOOD UREA NITROGEN 12 mg/dL (7-21); CALCIUM 9.5 mg/dL (8.4-10.5); GFR NON-AFRICAN AMERICAN 50
[2018-05-18 08:55] VITALS: O2SAT 95
--- NOTE | 2018-05-18 09:05 | RAD ---
Date of service: 05/18/2018 PROCEDURE: Radiographs of the right elbow. HISTORY: fall r/o fx COMPARISON: No prior. FINDINGS: The exam is technically very limited in terms of evaluating the elbow. BONES: Mid is complete fracture of the right humeral shaft with proximal 5 mm separation of the distal fracture fragment lateral to the proximal segment. Slight overriding. The apex of the fracture is pointed laterally. JOINTS: Not evaluated SOFT TISSUES: Normal. JOINT EFFUSION: None. OTHER FINDINGS: None. IMPRESSION: Markedly limited exam is specially regarding the elbow single view only appreciated on this available view all that can be stated is a this placed right mid humeral shaft fracture is present. When patient can cooperate consider repeat right elbow x-ray.
--- NOTE | 2018-05-18 09:51 | RAD ---
PROCEDURE: Radiographs of the right humerus. HISTORY: right arm pain r/o fx COMPARISON: None of the right humerus specifically. A labeled very limited right elbow exam is noted date of service 05/18/2018 FINDINGS: BONES: The previously referenced acute appearing mid shaft right humeral fracture is renoted its apex is very minimally angulated superiorly. No significant displacement in this lateral projection otherwise appreciated. SOFT TISSUES: Normal. OTHER FINDINGS: Thoraco lumbar spondylosis. IMPRESSION: Acute appearing right humeral mid shaft fracture
--- NOTE | 2018-05-18 09:52 | RAD ---
Date of service: 05/18/2018 PROCEDURE: Radiographs of the Right Shoulder HISTORY: fall r/o fx COMPARISON: Same-day right humerus and same-day right elbow labeled images. FINDINGS: BONES: A complete oblique mid right humeral shaft acute appearing fracture was fractured ends 8 mm. The distal segment is laterally displaced 8 mm from the proximal segment. JOINTS: Mild right shoulder arthrosis suspect. Again limited evaluation of the right elbow joint. SOFT TISSUES: Normal. OTHER FINDINGS: None. IMPRESSION: Acute appearing complete oblique right humeral midshaft fracture with lateral displacement as referenced above.
[2018-05-18 10:49] VITALS: BP 116/86; PULSE 102; TEMP 98.2
--- NOTE | 2018-05-18 20:40 | CON ---
DATE: 05/18/2018 ORTHOPEDIC REPORT HISTORY OF PRESENT ILLNESS: The patient was seen in the emergency room where she came in at 7:40 a.m. for pain in right arm, actually showed oblique fracture, midshaft of the right humerus. No evidence of pathologic fracture. So, we put on a coaptation splint to help keep the fracture stay reduced since her position was pretty very good and there is no evidence of neurologic damage. Radial nervous functioning well. Once the plaster of evens splint was put on the right arm which is right hand dominant, the pain was controlled and much less and that decreased pain was being moving around. So, I told to keep it hanging on with sitting up in the chair or bed or recliner to sleep in recliner and not to put weight on the right arm, and I will see her in the office in 10 days to 2 weeks. FINAL DIAGNOSES: Midshaft fracture of right humerus. No evidence of pathologic fracture, and we will treat her conservatively with coaptation splint when the fracture heales a lttle nore in 2 or 3 weeks i will put her in a functional humeral brace and a sling. Johnny Brady DO MTDD
== END 2018-05-18 11:13 | disposition home or self-care (01) ==
LOC: ED 07:40
DX: S42.391A Other fracture of shaft of right humerus, initial encounter for closed fracture (principal); W22.09XA Striking against other stationary object, initial encounter; Z85.118 Personal history of other malignant neoplasm of bronchus and lung; Z87.891 Personal history of nicotine dependence
CPT/HCPCS: 73030; 73060; 73080; 80048; 85025; 85610; 85730; 96374; 96376; 99284; J2270